=== PATIENT | female | born 2000 | race Caucasian/White ===

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

== ENCOUNTER 2020-05-17 13:56 | Emergency (ER) | payer OTHER, SELFPAY ==
[2020-05-17 14:06] VITALS: BP 134/66; PULSE 69; RESP 17; O2SAT 98; BMI 42.9
--- NOTE | 2020-05-17 14:32 | HMH.EDUTC ---
[facility] [place] Clinical Impression: Closed head injury Qualifiers: Encounter type: initial encounter Qualified Code(s): S09.90XA - Unspecified injury of head, initial encounter Headache Qualifiers: Headache type: unspecified Headache chronicity pattern: acute headache Intractability: not intractable Qualified Code(s): R51 - Headache Disposition: Home, Self-Care Condition on Discharge: Good Instructions: DI for Closed Head Injury Additional Instructions: Watch for signs of a concussion, follow up if you have any concerns. 1. Vomiting or nausea. 2. A worsening headache. 3. Drowsiness or decreased level of consciousness. 4. Confusion. 5. Trouble walking, talking, or seeing 6. Develope a stiff neck 7. Have a seizure (convulsion) or any abnormal movements or behaviors that worry you 8. Weakness or numbness involving any part of the body By this point, it should be ok to take either tylenol or ibuprofen for your headache. FOLLOW UP WITH [facility] - GO TO THE ER FOR ANY WORSENING SYMPTOMS OR CONCERNS Referrals: Arely Beasley PA [Primary Care Provider] - Forms: Work/School Release Time of Disposition: 14:48 Medical Decision Making - Medical Records Medical records reviewed: No: I reviewed the patient's medical records. - Ilan Inquiry Pt receiving controlled substance: No Vital Signs: 05/17/20 14:06 05/17/20 15:11 Temperature 98.1 F Temperature Source Oral Pulse Rate 69 Pulse Rate [Radial] 69 Respiratory Rate 17 17 Blood Pressure 134/66 Blood Pressure [Right Arm] 134/66 Blood Pressure Mean [Right Arm] 88 Blood Pressure Source Automatic Cuff Blood Pressure Source [Right Arm] Automatic Cuff Blood Pressure Position Sitting Blood Pressure Position [Right Arm] Sitting 02 Sat by Pulse Oximetry 98 Oxygen Delivery Method Room Air Room Air Orders (Tests/Meds): ED MEDICATIONS Discontinued Medications Generic Name Dose Route Start Last Admin Trade Name Freq PRN Reason Stop Dose Admin Ibuprofen 800 mg 05/17/20 14:31 05/17/20 14:40 Motrin 400mg Tablet PO 05/17/20 14:32 800 mg ONCE ONE [place] [facility] [place] - General Stated complaint: headache Time Seen by Provider: 05/17/20 14:32 Mode of Arrival: Ambulatory Source of Information: Patient Limitations: No Limitations Description of Symptoms (Recalled from Triage Doc. by RN): States she hit her head on the wall last night and has a headache. Denies LOC, no nausea or vomiting or excessive tiredness. HEENT Symptoms (Recalled from RN notes): Yes Resp Symptoms (Recalled from RN notes): No Skin Symptoms (Recalled from RN notes): No MS Symptoms (Recalled from RN notes): No Functional Status (Recalled from RN notes): wnl - History of Present Illness Provider Complaint: She states that she was horse playing with her friend and accidentily turned fast and bumped her forehead into her wall at home. This occured yesterday. Since then she has had a headache. She denies any loss of conciousness, vertigo, or other neurological symptoms - Related Data Previous Rx's Medication Instructions Recorded Azithromycin [Z-Chuy 250mg Tab*] 250 mg PO UD DOSE PK #6 tab 09/19/19 Brompheniramine/Pseudoephed/Dm 5 ml PO Q6HP PRN #240 syrup 09/19/19 [Bromfed Dm Cough Syrup] predniSONE [Prednisone 20mg 20 mg PO BID 4 Days #8 tab 09/19/19 Tab] Allergies Allergy/AdvReac Type Severity Reaction Status Date / Time No Known Allergies Allergy Verified 03/18/19 14:20 - Worker's Comp Is this a Worker's Comp case?: No [facility] History - Hepatitis A Screen Drug use history?: No High risk sexual behaviors?: No History of sexually transmitted infection?: No Currently employed?: No Childcare worker?: No Do you have indoor plumbing?: Yes Do you have electricity?: Yes Attestation statement:: This patient has been screened for Hepatitis A risk factors. I have reviewed the
[2020-05-17 15:11] VITALS: BP 134/66; PULSE 69; RESP 17; TEMP 36.7; O2SAT 98
== END 2020-05-17 15:13 | disposition home or self-care (01) ==
PROVIDERS: Emergency Provider Nurse Practitioner Family; PCP Physician Assistant
DX: S09.90XA Unspecified injury of head, initial encounter (principal); W22.01XA Walked into wall, initial encounter; Y92.019 Unspecified place in single-family (private) house as the place of occurrence of the external cause
CPT/HCPCS: 99201

== ENCOUNTER 2020-07-13 11:52 | Emergency (ER) | payer OTHER, SELFPAY ==
[2020-07-13 11:53] VITALS: BP 148/92; PULSE 77; RESP 18; TEMP 36.6; O2SAT 100; BMI 42.9
--- NOTE | 2020-07-13 13:02 | XR_ITS ---
PROCEDURE: XR FOOT LT MIN 3V CLINICAL INDICATION: PAIN COMPARISON: CR FTL3 FOOT-LT-3 VIEWS from 12/16/2012 CR FTL3 FOOT-LT-3 VIEWS from 01/26/2013 CR FTL3 FOOT-LT-3 VIEWS from 11/14/2013 CR FTR3 FOOT-RT-3 VIEWS from 11/02/2016 FINDINGS: No fracture or dislocation. No lytic or blastic change. There is normal mineralization. There is bony hypertrophy along the proximal aspect of the 5th metatarsal with an old healed fracture at the base of the 5th metatarsal. Other findings:No significant degenerative change. IMPRESSION: Old healed fracture at the base of the 5th metatarsal with bony hypertrophy Dictated by: Howard Cueva MD 07/13/2020 16:51 Hwoard Cueva MD in [place] 07/13/2020 16:51
--- NOTE | 2020-07-13 13:23 | HMH.EDUTC ---
[facility] [place] Clinical Impression: Foot pain, left Disposition: Home, Self-Care Condition on Discharge: Good Instructions: DI for Foot Pain Additional Instructions: Wear more supportive shoes Prescriptions: Meloxicam [Mobic 7.5mg Tab] 7.5 mg PO DAILY 30 Days #30 tab Transmission Status: Pending to [facility] Referrals: Arely Beasley PA [Primary Care Provider] - Time of Disposition: 14:31 Medical Decision Making - Ilan Inquiry Pt receiving controlled substance: No Vital Signs: 07/13/20 11:53 Temperature 97.8 F Temperature Source Oral Pulse Rate [Left Radial] 77 Respiratory Rate 18 Blood Pressure [Right Arm] 148/92 H Blood Pressure Mean [Right Arm] 110 Blood Pressure Source [Right Arm] Automatic Cuff Blood Pressure Position [Right Arm] Sitting 02 Sat by Pulse Oximetry 100 Oxygen Delivery Method Room Air Orders (Tests/Meds): ORDERS Category Date Time Status XR foot LT min 3V Stat Exams 07/13/20 13:02 Taken - Radiology Data #1 Image(s): Foot/Toes Image Reviewed: Yes I reviewed the patient's radiology image Preliminary Findings: No Fracture Seen [facility] [place] - General Stated complaint: L foot pain Time Seen by Provider: 07/13/20 13:23 Mode of Arrival: Ambulatory Source of Information: Patient Limitations: No Limitations Description of Symptoms (Recalled from Triage Doc. by RN): left foot pain for one month HEENT Symptoms (Recalled from RN notes): No Resp Symptoms (Recalled from RN notes): No Skin Symptoms (Recalled from RN notes): No MS Symptoms (Recalled from RN notes): Yes Functional Status (Recalled from RN notes): wnl - Related Data Previous Rx's Medication Instructions Recorded Azithromycin [Z-Chuy 250mg Tab*] 250 mg PO UD DOSE PK #6 tab 09/19/19 Brompheniramine/Pseudoephed/Dm 5 ml PO Q6HP PRN #240 syrup 09/19/19 [Bromfed Dm Cough Syrup] predniSONE [Prednisone 20mg 20 mg PO BID 4 Days #8 tab 09/19/19 Tab] Meloxicam [Mobic 7.5mg Tab] 7.5 mg PO DAILY 30 Days #30 tab 07/13/20 Allergies Allergy/AdvReac Type Severity Reaction Status Date / Time No Known Allergies Allergy Verified 03/18/19 14:20 - Worker's Comp Is this a Worker's Comp case?: No [facility] History - Hepatitis A Screen Drug use history?: No High risk sexual behaviors?: No History of sexually transmitted infection?: No Currently employed?: No Childcare worker?: No Do you have indoor plumbing?: No Do you have electricity?: Yes Attestation statement:: This patient has been screened for Hepatitis A risk factors. Medical History: Denies:: Cancer, Diabetes Mellitus Type 1, Diabetes Mellitus Type 2, Hypertension, MRSA Other Medical History: Reports: Other Comment: GASTROPEROSIS/ IBS, EHLERSDANLOS SYNDROME( CONNECTIVE TISSUE DISORDER) Laterality Cases: Left: Arthroscopy Knee, Bilateral: Myringotomy (Ear Tubes), Tonsillectomy Other Surgeries: Yes: Other Amputation: No Fractures: Yes (FOOT) Comment: BROKE LEFT FOOT AND RIGHT RING FEVER - Social History Smoking Status: Never smoker Alcohol Intake: never Substance Use Type: denies use Occupational Status: other Housing: house Household Members: family Family Hx:: No significant family history ROS Obtained: Yes All systems reviewed & no additional complaints - Musculoskeletal Musculoskeletal: Reports as per HPI Physical Exam - General General appearance: alert, in no apparent distress - Head Head exam: atraumatic, normocephalic - Eye Eye exam: Present: PERRL - Respiratory Respiratory exam: Present: normal lung sounds bilaterally - Cardiovascular Cardiovascular exam: Present: regular rate, normal rhythm - Expanded Lower Extremity Exam Left Foot/toe exam: Present: normal inspection. Absent: swelling, deformity - Neurological Exam Neurological exam: Present: alert, oriented X3 - Skin Skin exam: Present: warm, dry, intact
[2020-07-13 14:38] VITALS: BP 138/70; PULSE 87; RESP 16; TEMP 36.8; O2SAT 98
== END 2020-07-13 14:40 | disposition home or self-care (01) ==
PROVIDERS: Emergency Provider Physician Assistant; PCP Physician Assistant
DX: M79.672 Pain in left foot (principal); K31.84 Gastroparesis; K58.9 Irritable bowel syndrome, unspecified; Q79.60 Ehlers-Danlos syndrome, unspecified
CPT/HCPCS: 73630; 99201

== ENCOUNTER 2020-09-29 09:53 | Emergency (ER) | payer OTHER, SELFPAY ==
[2020-09-29 10:35] VITALS: BP 112/69; PULSE 69; RESP 16; TEMP 36.3; O2SAT 100; BMI 25.7
--- NOTE | 2020-09-29 11:14 | HMH.EDUTC ---
[facility] [place] Clinical Impression: Viral syndrome, Exposure to COVID-19 virus Disposition: Home, Self-Care Condition on Discharge: Good Instructions: Preventing the Spread of Coronavirus Discharge Instructions Additional Instructions: Drink plenty of fluids. Take tylenol for pain or fever. Follow up with your regular doctor. GO TO THE ER FOR ANY WORSENING SYMPTOMS Referrals: Arely Beasley PA [Primary Care Provider] - Time of Disposition: 11:14 Medical Decision Making - Medical Records Medical records reviewed: No: I reviewed the patient's medical records. - Ilan Inquiry Pt receiving controlled substance: No Vital Signs: 09/29/20 10:35 09/29/20 11:19 Temperature 97.3 F L 97.3 F L Temperature Source Oral Pulse Rate 69 Pulse Rate [Right Brachial] 69 Respiratory Rate 16 16 Blood Pressure 112/69 Blood Pressure [Right Arm] 112/69 Blood Pressure Mean [Right Arm] 83 Blood Pressure Source [Right Arm] Automatic Cuff Blood Pressure Position [Right Arm] Sitting 02 Sat by Pulse Oximetry 100 Oxygen Delivery Method Room Air Orders (Tests/Meds): ORDERS Category Date Time Status Covid-19 Nasal PCR ([facility]) Routine Lab 09/29/20 10:35 Received [facility] [place] HPI - General Stated complaint: covid exposure Time Seen by Provider: 09/29/20 10:40 Mode of Arrival: Ambulatory Source of Information: Patient Limitations: No Limitations Description of Symptoms (Recalled from Triage Doc. by RN): PATIENT REQUESTING COVID TEST D/T EXPOSURE; DENIES SYMPTOMS HEENT Symptoms (Recalled from RN notes): No Resp Symptoms (Recalled from RN notes): No Skin Symptoms (Recalled from RN notes): No MS Symptoms (Recalled from RN notes): No Functional Status (Recalled from RN notes): WNL - History of Present Illness Provider Complaint: She c/o chilling and head ache for the past 2 days. - Related Data Previous Rx's Medication Instructions Recorded Azithromycin [Z-Chuy 250mg Tab*] 250 mg PO UD DOSE PK #6 tab 09/19/19 Brompheniramine/Pseudoephed/Dm 5 ml PO Q6HP PRN #240 syrup 09/19/19 [Bromfed Dm Cough Syrup] predniSONE [Prednisone 20mg 20 mg PO BID 4 Days #8 tab 09/19/19 Tab] Meloxicam [Mobic 7.5mg Tab] 7.5 mg PO DAILY 30 Days #30 tab 07/13/20 Allergies Allergy/AdvReac Type Severity Reaction Status Date / Time No Known Allergies Allergy Verified 03/18/19 14:20 - Worker's Comp Is this a Worker's Comp case?: No [facility] History - Hepatitis A Screen Drug use history?: No High risk sexual behaviors?: No History of sexually transmitted infection?: No Currently employed?: No Childcare worker?: No Do you have indoor plumbing?: Yes Do you have electricity?: Yes Attestation statement:: This patient has been screened for Hepatitis A risk factors. I have reviewed the patient's past medical history: Yes Medical History: Denies:: Cancer, Diabetes Mellitus Type 1, Diabetes Mellitus Type 2, Hypertension, MRSA Other Medical History: Reports: Other Comment: GASTROPEROSIS/ IBS, EHLERSDANLOS SYNDROME( CONNECTIVE TISSUE DISORDER) Laterality Cases: Left: Arthroscopy Knee, Bilateral: Myringotomy (Ear Tubes), Tonsillectomy Other Surgeries: Yes: Other Amputation: No Fractures: Yes (FOOT) Comment: BROKE LEFT FOOT AND RIGHT RING FEVER - Social History Smoking Status: Never smoker Alcohol Intake: never Substance Use Type: denies use Occupational Status: other Housing: house Household Members: family Family Hx:: No significant family history ROS Obtained: Yes All systems reviewed & no additional complaints - Constitutional Constitutional: Reports system reviewed and no additional complaints, except as docu - Eyes Eyes: Reports system reviewed and no additional complaints, except as docu - ENT Ears, Nose, Mouth, and Throat: Reports system reviewed and no additional complaints, except as docu - Cardiovascular Cardiovascular: Reports system reviewed and no additional complaints, ex
[2020-09-29 11:19] VITALS: BP 112/69; PULSE 69; RESP 16; TEMP 36.3; O2SAT 100
== END 2020-09-29 11:22 | disposition home or self-care (01) ==
PROVIDERS: Emergency Provider Nurse Practitioner Family; PCP Physician Assistant
DX: Z20.822 Contact with and (suspected) exposure to COVID-19 (principal); B34.9 Viral infection, unspecified
CPT/HCPCS: 99202; G0463; U0003

== ENCOUNTER 2020-09-30 14:24 | Emergency (ER) | payer OTHER, SELFPAY ==
[2020-09-30 15:40] VITALS: BP 162/97; PULSE 71; RESP 14; TEMP 36.8; O2SAT 99; BMI 42.9
[2020-09-30 16:13] VITALS: BP 162/97; PULSE 71; RESP 14; TEMP 36.8; O2SAT 99
--- NOTE | 2020-09-30 16:19 | HMH.EDUTC ---
[facility] [place] Impression: Exposure to COVID-19 virus Disposition: Home, Self-Care Condition on Discharge: Good Instructions: DI for COVID-19 (Suspected or Confirmed ), Preventing the Spread of Coronavirus Discharge Instructions Additional Instructions: increase fluids self isolate until test results are known to be neg Referrals: Arely Beasley PA [Primary Care Provider] - Forms: Work/School Release Time of Disposition: 16:21 Medical Decision Making - Ilan Inquiry Pt receiving controlled substance: No Vital Signs: 09/30/20 15:40 09/30/20 16:13 Temperature 98.3 F 98.3 F Temperature Source Oral Pulse Rate 71 Pulse Rate [Right Brachial] 71 Respiratory Rate 14 14 Blood Pressure 162/97 H Blood Pressure [Right Arm] 162/97 H Blood Pressure Mean [Right Arm] 118 Blood Pressure Source [Right Arm] Automatic Cuff Blood Pressure Position [Right Arm] Sitting 02 Sat by Pulse Oximetry 99 Oxygen Delivery Method Room Air [facility] [place] - General Chief complaint: [facility] Stated complaint: covid exposure Time Seen by Provider: 09/30/20 16:19 Mode of Arrival: Ambulatory Source of Information: Patient Limitations: No Limitations Description of Symptoms (Recalled from Triage Doc. by RN): PATIENT REQUESTING COVID TEST D/T EXPOSURE HEENT Symptoms (Recalled from RN notes): No Resp Symptoms (Recalled from RN notes): No Skin Symptoms (Recalled from RN notes): No MS Symptoms (Recalled from RN notes): No Functional Status (Recalled from RN notes): WNL - History of Present Illness Provider Complaint: 20 yr old female presents for covid test. pt states she was exposed but no symptoms. - Related Data Previous Rx's Medication Instructions Recorded Azithromycin [Z-Chuy 250mg Tab*] 250 mg PO UD DOSE PK #6 tab 09/19/19 Brompheniramine/Pseudoephed/Dm 5 ml PO Q6HP PRN #240 syrup 09/19/19 [Bromfed Dm Cough Syrup] predniSONE [Prednisone 20mg 20 mg PO BID 4 Days #8 tab 09/19/19 Tab] Meloxicam [Mobic 7.5mg Tab] 7.5 mg PO DAILY 30 Days #30 tab 07/13/20 Allergies Allergy/AdvReac Type Severity Reaction Status Date / Time No Known Allergies Allergy Verified 06/21/19 14:20 - Worker's Comp Is this a Worker's Comp case?: No H History - Hepatitis A Screen Drug use history?: No High risk sexual behaviors?: No History of sexually transmitted infection?: No Currently employed?: No Childcare worker?: No Do you have indoor plumbing?: Yes Do you have electricity?: Yes Attestation statement:: This patient has been screened for Hepatitis A risk factors. I have reviewed the patient's past medical history: Yes Medical History: Denies:: Cancer, Diabetes Mellitus Type 1, Diabetes Mellitus Type 2, Hypertension, MRSA Other Medical History: Reports: Other Comment: GASTROPEROSIS/ IBS, EHLERSDANLOS SYNDROME( CONNECTIVE TISSUE DISORDER) Laterality Cases: Left: Arthroscopy Knee, Bilateral: Myringotomy (Ear Tubes), Tonsillectomy Other Surgeries: Yes: Other Amputation: No Fractures: Yes (FOOT) Comment: BROKE LEFT FOOT AND RIGHT RING FEVER - Social History Smoking Status: Never smoker Alcohol Intake: never Substance Use Type: denies use Occupational Status: other Housing: house Household Members: family Family Hx:: No significant family history ROS Obtained: Yes Systems reviewed as appropriate & no additional complaints - Constitutional Constitutional: Reports system reviewed and no additional complaints, except as docu, Denies fever(s) - Eyes Eyes: Reports system reviewed and no additional complaints, except as docu - ENT Ears, Nose, Mouth, and Throat: Reports system reviewed and no additional complaints, except as docu, Denies dizziness - Cardiovascular Cardiovascular: Reports system reviewed and no additional complaints, except as docu, Denies chest pain at rest - Respiratory Respiratory: Yes system reviewed and no additional complaints, except as docu, No lucy
== END 2020-09-30 16:27 | disposition home or self-care (01) ==
PROVIDERS: Emergency Provider Nurse Practitioner Family; PCP Physician Assistant
DX: Z20.822 Contact with and (suspected) exposure to COVID-19 (principal); K58.9 Irritable bowel syndrome, unspecified
CPT/HCPCS: 99202; G0463; U0003

== ENCOUNTER 2021-02-05 14:53 | Emergency (ER) | payer OTHER, SELFPAY ==
[2021-02-05 14:55] VITALS: BP 130/80; PULSE 76; RESP 21; TEMP 36.8; O2SAT 98; BMI 45.1
--- NOTE | 2021-02-05 15:38 | HMH.EDUTC ---
[facility] [place] Clinical Impression: Left otitis media Qualifiers: Otitis media type: suppurative Chronicity: acute Recurrence: non-recurrent Spontaneous tympanic membrane rupture: without spontaneous rupture Qualified Code(s): H66.002 - Acute suppurative otitis media without spontaneous rupture of ear drum, left ear Disposition: Home, Self-Care Condition on Discharge: Good Instructions: Middle Ear Infection Additional Instructions: Drink plenty of fluids. Take tylenol or ibuprofen for pain or fever. Take the medications as directed. Follow up with your regular doctor. GO TO THE ER FOR ANY WORSENING SYMPTOMS Prescriptions: Amoxicillin [Amoxicillin 500mg Tab] 500 mg PO TID 10 Days #30 tab Transmission Status: Received by [facility] predniSONE [Deltasone 10mg tablet] 10 mg PO BID 3 Days #6 tab Transmission Status: Received by [facility] Cetirizine HCl [Zyrtec] 10 mg PO DAILY 30 Days #30 cap Transmission Status: Received by [facility] Referrals: Arely Beasley PA [Primary Care Provider] - Time of Disposition: 15:42 Medical Decision Making - Medical Records Medical records reviewed: No: I reviewed the patient's medical records. - Ilan Inquiry Pt receiving controlled substance: No Vital Signs: 02/05/21 14:55 02/05/21 15:45 Temperature 98.3 F 98.3 F Temperature Source Oral Pulse Rate 76 Pulse Rate [Left Brachial] 76 Respiratory Rate 21 21 Blood Pressure 130/80 Blood Pressure [Left Arm] 130/80 Blood Pressure Mean [Left Arm] 96 Blood Pressure Source [Left Arm] Automatic Cuff Blood Pressure Position [Left Arm] Sitting 02 Sat by Pulse Oximetry 98 Oxygen Delivery Method Room Air [facility] [place] HPI - General Stated complaint: left earache Time Seen by Provider: 02/05/21 15:38 Mode of Arrival: Ambulatory Source of Information: Patient Limitations: No Limitations Description of Symptoms (Recalled from Triage Doc. by RN): PATIENT C/O LEFT EAR ACHE THAT STARTED LAST NIGHT HEENT Symptoms (Recalled from RN notes): Yes Resp Symptoms (Recalled from RN notes): No Skin Symptoms (Recalled from RN notes): No MS Symptoms (Recalled from RN notes): No Functional Status (Recalled from RN notes): WNL - History of Present Illness Provider Complaint: She states that since last night she has had left ear pain. She has a history of getting ear infections in that ear kind of frequently. - Related Data Previous Rx's Medication Instructions Recorded Amoxicillin [Amoxicillin 500mg Tab] 500 mg PO TID 10 Days #30 tab 02/05/21 Cetirizine HCl [Zyrtec] 10 mg PO DAILY 30 Days #30 cap 02/05/21 predniSONE [Deltasone 10mg tablet] 10 mg PO BID 3 Days #6 tab 02/05/21 Allergies Allergy/AdvReac Type Severity Reaction Status Date / Time No Known Allergies Allergy Verified 03/18/19 14:20 - Worker's Comp Is this a Worker's Comp case?: No [facility] History - Hepatitis A Screen Drug use history?: No High risk sexual behaviors?: No History of sexually transmitted infection?: No Currently employed?: No Childcare worker?: No Do you have indoor plumbing?: Yes Do you have electricity?: Yes Attestation statement:: This patient has been screened for Hepatitis A risk factors. I have reviewed the patient's past medical history: Yes Medical History: Denies:: Cancer, Diabetes Mellitus Type 1, Diabetes Mellitus Type 2, Hypertension, MRSA Other Medical History: Reports: Other Comment: GASTROPEROSIS/ IBS, EHLERSDANLOS SYNDROME( CONNECTIVE TISSUE DISORDER) Laterality Cases: Left: Arthroscopy Knee, Bilateral: Myringotomy (Ear Tubes), Tonsillectomy Other Surgeries: Yes: Other Amputation: No Fractures: Yes (FOOT) Comment: BROKE LEFT FOOT AND RIGHT RING FEVER - Social History Smoking Status: Never smoker Alcohol Intake: never Substance Use Type: denies use Occupational Status: other Housing: house Household Members: family Family Hx:: No significant family history ROS Obtained:
[2021-02-05 15:45] VITALS: BP 130/80; PULSE 76; RESP 21; TEMP 36.8; O2SAT 98
== END 2021-02-05 15:48 | disposition home or self-care (01) ==
PROVIDERS: Emergency Provider Nurse Practitioner Family; PCP Physician Assistant
DX: H66.002 Acute suppurative otitis media without spontaneous rupture of ear drum, left ear (principal)
CPT/HCPCS: 99202; G0463

== ENCOUNTER → 2021-04-12 10:29 | Outpatient (CLI) | payer OTHER, SELFPAY ==
[2021-04-12 10:32] LABS: Microscopic, Urine URINE MICROSCOPIC (MICROSCOPIC)
[2021-04-12 11:08] LABS: Basophils # 0.1 K/mm3 (0-0.2); Basophils % 0.7 % (0.1-2.0); Eosinophils % 0.3 % (0.1-12.0); Hematocrit 40.5 % (37.0-47.0); Hemoglobin 13.5 g/dL (12.2-16.2); Lymphocytes # 1.6 K/mm3 (0.7-4.5); Lymphocytes % 19.4 % (10-50); Mean Corpuscular HGB Conc 33.3 g/dL (31.8-35.4); Mean Corpuscular Hemoglobin 26.6 pg (27.0-31.2); Mean Corpuscular Volume 79.9 fl (81-99); Mean Platelet Volume 7.7 fl (7.4-10.4); Monocytes # 0.6 K/mm3 (0.1-1.0); Monocytes % 7.7 % (1.7-9.3); Neutrophils # 5.9 K/mm3 (1.8-7.8); Neutrophils % 71.9 % (37.0-80.0); Platelet Count 300 K/mm3 (142-424); Red Blood Count 5.07 M/mm3 (4.20-5.40); Red Cell Distribution Width 13.3 % (11.5-17.5); White Blood Count 8.3 K/mm3 (4.5-13.0)
[2021-04-12 11:16] LABS: Appearance,Urine CLOUDY (Clear); Bilirubin,Urine Negative (Negative); Blood, Urine Negative (Negative); Color,Urine YELLOW (Yellow); Glucose,Urine (UA) Negative (Negative); Ketones,Urine Negative (Negative); Leukocyte Esterase,Urine TRACE (Negative); Nitrate,Urine Negative (Negative); PH,Urine 6.5 (5.0-8.5); Protein,Urine Negative (Negative); Specific Gravity, Urine 1.025 (1.005-1.030); Urobilinogen,Urine 0.2 EU/dl (0.2)
[2021-04-12 11:41] LABS: Alanine Aminotransferase 28 U/L (12-78); Albumin Level 4.5 g/dl (3.5-5.0); Albumin/Globulin Ratio 1.6 (1.1-1.8); Alkaline Phosphatase 83 U/L (38-126); Amylase 60 U/L (30-110); Anion Gap 14.1 mEq/L (5-15); Aspartate Amino Transferase 26 U/L (14-36); Bilirubin,Total 0.8 mg/dl (0.2-1.3); Blood Urea Nitrogen 11 mg/dl (7-17); Calcium 9.5 mg/dl (8.4-10.2); Carbon Dioxide 28 mmol/L (22.0-30.0); Chloride 103 mmol/L (98-107); Chol/HDL Ratio 3.7 (1-3.5); Cholesterol 169 mg/dl (140-200); Estimated Glomerular Filt Rate 127 ml/min (>60); GFR (African American) 154 ML/MIN (>60); Globulin 2.8 g/dL (1.3-3.2); Glucose 100 mg/dl (74-100); HDL Cholesterol 46 mg/dl (40-60); Lipase 160 U/L (23-300); Potassium 4.1 mmoL/L (3.5-5.1); Sodium 141 mmol/L (136-145); Total Protein,Serum 7.3 g/dl (6.3-8.2); Triglycerides 90 mg/dl (30-150); VLDL Cholesterol 18 mg/dL (0-40)
[2021-04-12 11:53] LABS: Direct LDL Cholesterol 98.27 mg/dL (100-129)
[2021-04-12 12:09] LABS: Bacteria,Urine Trace /lpf; Squamous Epithelial Cell,Urine Occasional #/hpf (0-5)
[2021-04-12 12:10] LABS: Urine Pregnancy, HCG Qual. Negative (Negative)
[2021-04-12 12:12] LABS: Thyroid Stimulating Hormone 0.99 uIU/mL (0.465-4.68)
[2021-04-14 08:38] LABS: H. pylori Breath Test Negative (Negative)
== END ==
PROVIDERS: Visit Provider Physician Assistant
DX: R10.13 Epigastric pain (principal)
CPT/HCPCS: 36415; 80053; 80061; 81001; 81025; 82150; 83013; 83690; 84443; 85025

== ENCOUNTER → 2021-04-17 08:24 | Outpatient (CLI) | payer OTHER, SELFPAY ==
--- NOTE | 2021-04-17 08:24 | US_ITS ---
PROCEDURE: US ABDOMEN LIMITED CLINICAL INDICATION: post prandial vomiting COMPARISON: US [facility] US abdomen limited from 02/05/2018 FINDINGS: PANCREAS: Unremarkable. No obvious mass or abnormal fluid collection. No ductal dilatation LIVER: No focal liver lesions demonstrated. Homogeneous echogenicity. No intrahepatic biliary ductal dilatation evident. There is appropriate direction of blood flow within a non dilated portal vein RIGHT KIDNEY: The right kidney measures 9.9 x 4.5 x 6.1 cm and appears sonographically normal. GALLBLADDER: No gallstones, gallbladder wall thickening, pericholecystic fluid, or biliary dilatation. There is a trace amount of biliary sludge near the neck of the gallbladder. IMPRESSION: Trace biliary sludge otherwise unremarkable study Dictated by: Dr. Jethro Crockett MD 04/17/2021 11:23 Dr. Jethro Crockett MD in [place] 04/17/2021 11:23
== END ==
PROVIDERS: PCP Physician Assistant; Visit Provider Physician Assistant
DX: R10.13 Epigastric pain (principal)
CPT/HCPCS: 76705

== ENCOUNTER 2021-04-30 14:14 | Emergency (ER) | payer OTHER, SELFPAY ==
[2021-04-30 14:14] VITALS: BP 131/80; PULSE 84; RESP 21; TEMP 37; O2SAT 98; BMI 44.2
--- NOTE | 2021-04-30 15:27 | HMH.EDUTC ---
[facility] [place] Dis[place] Clinical Impression: Encounter for laboratory testing for COVID-19 virus Disposition: Home, Self-Care Condition on Discharge: Good Instructions: DI for COVID-19 (Suspected or Confirmed ), Coronavirus Disease 2019, Preventing the Spread of Coronavirus Discharge Instructions Additional Instructions: *Monitor Temp, Over the counter Motrin or Tylenol as directed/as needed Tylenol every 4 hours and Motrin every 6 hours (as long as your family doctor has told you that you can take it) for fever or pain. and straight to ER if unable to lower temp less than 101.0 after medication given *Warm salt water gargles may help to soothe the throat *Throat Lozenges *Warm fluids like tea with honey may help to soothe the throat *Sleep elevated *Humidifier/Vaporizer Follow up IMMEDIATELY for new or worsening symptoms or no Noticeable improvement over the next 48-72 hours. 911 for difficulty breathing or swallowing You were tested for today for COVID19 your test result should be back in the next 24-48 hours, you may call to the [facility] to see if your test results are back in the next 48 hours [phone] [facility] hours are 9am-9pm You was given a handout with instructions for Self Quarantine and Self isolation for while you wait on test results and what to do if they are positive If you are positive the Health Dept will be contacting you also Referrals: Arely Beasley PA [Primary Care Provider] - As needed Forms: Work/School Release Time of Disposition: 15:30 Medical Decision Making - Ilan Inquiry Pt receiving controlled substance: No Ilan was queried for this patient: No Vital Signs: 04/30/21 14:14 Temperature 98.6 F Temperature Source Oral Pulse Rate [Apical] 84 Respiratory Rate 21 Blood Pressure [Right Arm] 131/80 Blood Pressure Mean [Right Arm] 97 Blood Pressure Source [Right Arm] Automatic Cuff Blood Pressure Position [Right Arm] Supine 02 Sat by Pulse Oximetry 98 Oxygen Delivery Method Room Air Orders (Tests/Meds): ORDERS Category Date Time Status Covid-19 Nasal PCR ([facility]) Routine Lab 04/30/21 15:21 Ordered [facility] [place] HPI - General Stated complaint: covid exposure, symptoms Time Seen by Provider: 04/30/21 15:27 Mode of Arrival: Ambulatory Source of Information: Patient Limitations: No Limitations Description of Symptoms (Recalled from Triage Doc. by RN): covid test HEENT Symptoms (Recalled from RN notes): No Resp Symptoms (Recalled from RN notes): No Skin Symptoms (Recalled from RN notes): No MS Symptoms (Recalled from RN notes): No Functional Status (Recalled from RN notes): na - History of Present Illness Provider Complaint: Patient states that she was recently around her mother that tested positive for COVID yesterday State that she has been having body aches, chills, and nasal congestion States that she wanted to get tested for COVID due to exposure and having symptoms - Related Data Previous Rx's Medication Instructions Recorded cetirizine 10 mg tablet 10 mg PO DAILY PRN #30 tab 03/15/21 fluticasone propionate 50 1 spray INTRANASAL DAILY #16 g 03/15/21 mcg/actuation nasal spray,suspension omeprazole 40 mg capsule,delayed 40 mg PO DAILY #90 cap 04/11/21 release ondansetron 8 mg disintegrating 8 mg PO Q8H PRN #30 tab 04/11/21 tablet Allergies Allergy/AdvReac Type Severity Reaction Status Date / Time No Known Allergies Allergy Verified 04/11/21 13:57 - Worker's Comp Is this a Worker's Comp case?: No [facility] History - Hepatitis A Screen Drug use history?: No High risk sexual behaviors?: No History of sexually transmitted infection?: No Currently employed?: No Childcare worker?: No Do you have indoor plumbing?: Yes Do you have electricity?: Yes Attestation statement:: This patient has been screened for Hepatitis A risk factors. I have reviewed the patient's past medical history: Yes Medical History: Denies:: Cancer, Diabetes Mellitus Type 1
[2021-04-30 15:57] VITALS: BP 131/80; PULSE 84; RESP 21; TEMP 37; O2SAT 98
--- NOTE | 2021-05-01 09:32 | PC.NURSE ---
PT NOTIFIED OF POSITIVE COVID RESULT
== END 2021-04-30 15:58 | disposition home or self-care (01) ==
PROVIDERS: Emergency Provider Nurse Practitioner; PCP Physician Assistant
DX: U07.1 COVID-19 (principal)
CPT/HCPCS: 99202; G0463; U0003

== ENCOUNTER → 2021-06-17 06:57 | Outpatient (CLI) | payer OTHER, SELFPAY ==
--- NOTE | 2021-06-17 06:58 | NM_ITS ---
PROCEDURE: NM HEPATOBILIARY WO PHARM CLINICAL INDICATION: Biliary sludge in abdominal ultrasound COMPARISON: No exams were available for comparison TECHNIQUE: DOSE: 4.99 mCi technetium Choletec Ensure for fatty meal FINDINGS: Homogeneous activity is present within the hepatic parenchyma. Activity is present in the gallbladder by 5 minutes. Activity is present in the small bowel by minutes. The gallbladder ejection fraction is calculated to be 61 percent. No pain reported with fatty meal IMPRESSION: Unremarkable hepatobiliary scan with normal gallbladder ejection fraction Dictated by: Howard Cueva MD 06/17/2021 11:47 Howard Cueva MD in [place] 06/17/2021 11:47
--- NOTE | 2021-06-17 09:44 | HMH.ITSHM ---
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 []ODANSETRON OMEPRAZOLE FLUTICASONE CETIRIZINE
== END ==
PROVIDERS: PCP Physician Assistant; Visit Provider Physician Assistant
DX: K83.8 Other specified diseases of biliary tract (principal)
CPT/HCPCS: 78226; A9537

== ENCOUNTER → 2022-05-28 08:55 | Outpatient (CLI) | payer OTHER, SELFPAY ==
[2022-05-28 08:59] LABS: MANUAL DIFFERENTIAL MANUAL DIFFERENTIAL (MANUAL DIFF)
[2022-05-28 10:02] LABS: Basophils % 0.4 % (0.1-2.0); Eosinophils % 0.2 % (0.1-12.0); Hematocrit 41.5 % (37.0-47.0); Hemoglobin 12.9 g/dL (12.2-16.2); Lymphocytes # 1.3 K/mm3 (0.7-4.5); Lymphocytes % 20.9 % (10-50); Mean Corpuscular Hemoglobin 25.2 pg (27.0-31.2); Mean Corpuscular Volume 81.2 fl (81-99); Mean Platelet Volume 7.8 fl (7.4-10.4); Monocytes # 0.5 K/mm3 (0.1-1.0); Monocytes % 8.2 % (1.7-9.3); Neutrophils # 4.4 K/mm3 (1.8-7.8); Neutrophils % 70.3 % (37.0-80.0); Platelet Count 327 K/mm3 (142-424); Red Blood Count 5.12 M/mm3 (4.20-5.40); Red Cell Distribution Width 14.2 % (11.5-17.5); White Blood Count 6.2 K/mm3 (4.8-10.8)
[2022-05-28 12:51] LABS: Alanine Aminotransferase 50 U/L (12-78); Albumin Level 4.2 g/dl (3.5-5.0); Albumin/Globulin Ratio 1.4 (1.1-1.8); Alkaline Phosphatase 142 U/L (38-126); Anion Gap 14.1 mEq/L (5-15); Aspartate Amino Transferase 44 U/L (14-36); Bilirubin,Total 0.8 mg/dl (0.2-1.3); Blood Urea Nitrogen 8 mg/dl (7-17); Calcium 9.5 mg/dl (8.4-10.2); Carbon Dioxide 24 mmol/L (22.0-30.0); Chloride 105 mmol/L (98-107); Estimated Glomerular Filt Rate 126 ml/min (>60); GFR (African American) 153 ML/MIN (>60); Globulin 2.9 g/dL (1.3-3.2); Glucose 93 mg/dl (74-100); Potassium 4.1 mmoL/L (3.5-5.1); Sodium 139 mmol/L (136-145); Total Protein,Serum 7.1 g/dl (6.3-8.2)
[2022-05-28 19:29] LABS: Hypochromasia 2+; Lymphocytes % 22 % (10-50); Microcytosis 1+; Monocytes % 5 % (2-9); Neutrophils % 73 % (42-76); Platelet Estimate Normal; Total Cells Counted 100
[2022-05-29 14:36] LABS: H. pylori Breath Test Negative (Negative)
== END ==
PROVIDERS: PCP Physician Assistant; Visit Provider Nurse Practitioner Family
DX: R10.13 Epigastric pain (principal)
CPT/HCPCS: 36415; 80053; 83013; 85007; 85014; 85018; 85048; 85049

== ENCOUNTER → 2022-06-04 09:03 | Outpatient (CLI) | payer OTHER, SELFPAY ==
--- NOTE | 2022-06-04 09:08 | US_ITS ---
FINAL REPORT CLINICAL HISTORY: Upper right quadrant pain FINDINGS: Sonographic images of the right upper quadrant were obtained. The pancreas is partially obscured.The liver has an unremarkable appearance. There is a trace amount of sludge in the gallbladder. There is no evidence of biliary ductal dilatation.The common duct measures 2 mm. Limited images of the right kidney are unremarkable. IMPRESSION: Trace amount of sludge in the gallbladder. Reviewed, Interpreted and Dictated by Robert Altamirano III, MD Transcribed by Ramsey Virk Authenticated and [facility]
== END ==
PROVIDERS: PCP Physician Assistant; Visit Provider Physician Assistant
DX: R10.9 Unspecified abdominal pain (principal)
CPT/HCPCS: 76705

== ENCOUNTER 2022-07-01 08:05 | Emergency (ER) | payer OTHER, SELFPAY ==
[2022-07-01 08:17] VITALS: BP 150/99; PULSE 82; RESP 16; TEMP 36.8; O2SAT 97; BMI 44.6
--- NOTE | 2022-07-01 08:46 | EXP.UTC ---
Discharge Plan Disposition Patient Disposition: Home, Self-Care Condition: Good Prescriptions Prescriptions: New azithromycin [Zithromax] 250 mg tablet 250 mg PO UD DOSE PK Qty: 6 0RF Rx Instructions: Take two (2) tablets today, then one (1) tablet days #2 thru #5 methylprednisolone 4 mg Tablets,Dose Pack 4 mg PO DIRECTED Qty: 21 0RF No Action ondansetron HCl 4 mg tablet 4 mg PO QID PRN (Reason: for nausea) Qty: 90 1RF fluticasone propionate [Flonase Allergy Relief] 50 mcg/actuation spray,suspension 1 spray INTRANASAL DAILY Qty: 16 2RF Rx Instructions: administer into each nostril omeprazole 40 mg capsule,delayed release(DR/EC) 40 mg PO DAILY Rx Instructions: swallow whole; do not crush, chew, dissolve, cut, break Referrals Follow up/Referrals: Arely Beasley PA [Primary Care Provider] - See instructions Clinical Impressions Clinical Impression: Bronchitis, Sinusitis Stand Alone Forms Stand Alone Forms: Work/School Release Instructions Patient Instructions: Sinusitis, DI for Sinusitis Discharge ED Provider: Yusuf Fiore [facility] General Stated complaint: cough, KNAPP, congestion Mode of Arrival: Ambulatory Source of Information: Patient Limitations: No Limitations Time Seen by Provider: 07/01/22 08:24 Description of Symptoms (Recalled from Triage Doc. by RN): pt comes in with c/o congestion and headache. symptoms began 5 days ago. HEENT Symptoms (Recalled from RN notes): Yes Resp Symptoms (Recalled from RN notes): No Skin Symptoms (Recalled from RN notes): No MS Symptoms (Recalled from RN notes): No Functional Status (Recalled from RN notes): n/a History of Present Illness Provider Complaint: She states that for the past 5 days she has had sinus congestion, bilateral ear pain, cough and a sore throat. Related Data Home Medications Medication Instructions Recorded Confirmed omeprazole 40 mg capsule,delayed 40 mg PO DAILY GERD 07/01/22 07/01/22 release Previous Rx's Medication Instructions Recorded fluticasone propionate 50 1 spray intranasal DAILY #16 grams 03/15/21 mcg/actuation nasal spray,suspension (Flonase Allergy Relief) ondansetron HCl 4 mg tablet 4 mg PO QID PRN for nausea #90 tabs 05/27/22 azithromycin 250 mg tablet 250 mg PO UD DOSE PK #6 tabs 07/01/22 (Zithromax) methylprednisolone 4 mg tablets in 4 mg PO DIRECTED #21 tabs 07/01/22 a dose pack Allergies Allergy/AdvReac Type Severity Reaction Status Date / Time No Known Allergies Allergy Verified 07/01/22 08:22 Worker's Comp Is this a Worker's Comp case?: No PFSH PFSH Medical History Deedee-Danlos syndrome Epigastric pain Left knee pain Social History Smoking Status: Never smoker second hand exposure: No alcohol intake: never substance use type: denies use current occupational status: other Travel in the last 8 weeks: None household members: family housing: house ROS Obtained: Yes All systems reviewed & no additional complaints except as documented Constitutional Constitutional: Reports chills and Reports fever(s) Eyes Eyes: Denies eye discharge ENT Ears, Nose, Mouth, and Throat: Reports as per HPI Cardiovascular Cardiovascular: Denies chest pain Respiratory Respiratory: Denies chest congestion and Reports cough Gastrointestinal Gastrointestingal: Reports nausea; Denies abdominal pain, constipation, cramping, diarrhea or vomiting Musculoskeletal Musculoskeletal: Denies arthralgias Integumentary/Breasts Skin/Breast: Denies rash Neurologic Neurologic: Denies paresthesias Physical Exam General General appearance: alert and in no apparent distress Head Head exam: atraumatic, normocephalic and normal inspection Eye Eye exam: Present normal appearance, PERRL and EOMI ENT ENT exam: Present mucous membranes moist and
[2022-07-01 08:55] VITALS: BP 150/99; PULSE 82; RESP 16; TEMP 36.8
== END 2022-07-01 08:56 | disposition home or self-care (01) ==
PROVIDERS: Emergency Provider Nurse Practitioner Family; PCP Physician Assistant
DX: J40 Bronchitis, not specified as acute or chronic (principal); J32.9 Chronic sinusitis, unspecified
CPT/HCPCS: 99212; G0463

== ENCOUNTER → 2022-10-03 11:34 | Outpatient (CLI) | payer OTHER, SELFPAY | PROVIDERS: PCP Student in an Organized Health Care Education/Training Program; Visit Provider Student in an Organized Health Care Education/Training Program | DX: J02.9 Acute pharyngitis, unspecified (principal) | CPT/HCPCS: 87070; C9803; U0003; U0005 ==

== ENCOUNTER → 2023-08-26 13:17 | Outpatient (CLI) | payer OTHER, SELFPAY ==
--- NOTE | 2023-08-26 13:22 | XR_ITS ---
FINAL REPORT CLINICAL HISTORY: left rolon pain FINDINGS: Left knee Four views were obtained. There is no acute fracture or dislocation. The joint spaces appear normal. No soft tissue abnormality is identified. IMPRESSION: No acute process. Reviewed, Interpreted and Dictated by Dm Leiva MD Transcribed by Melodie Villeda Authenticated and [facility]
--- NOTE | 2023-08-26 13:22 | XR_ITS ---
FINAL REPORT CLINICAL HISTORY: left knee pain FINDINGS: Left tibia fibula Two views were obtained. There is no acute fracture or dislocation. The joint spaces appear normal. No soft tissue abnormality is identified. IMPRESSION: No acute process. Reviewed, Interpreted and Dictated by Dm Leiva MD Transcribed by Melodie Villeda Authenticated and [facility]
== END ==
PROVIDERS: PCP Physician Assistant; Visit Provider Physician Assistant
DX: M79.662 Pain in left lower leg (principal)
CPT/HCPCS: 73564; 73590

== ENCOUNTER 2023-09-09 09:43 | Emergency (ER) | payer OTHER, SELFPAY ==
[2023-09-09] VITALS (7 sets, daily range): BP systolic 111–132; BP diastolic 63–73; PULSE 59–81; RESP 16–19; TEMP 36.7–36.9; O2SAT 98–100; BMI 44.6
--- NOTE | 2023-09-09 09:55 | US_ITS ---
FINAL REPORT CLINICAL HISTORY: RUQ and epigastric pain COMPARISON: 04/17/2021 FINDINGS: Sonographic images of the right upper quadrant were obtained. The pancreas is partially obscured. There is mild fatty infiltration of the liver there is extensive sludge in the gallbladder. There is no evidence of gallbladder wall thickening. There is no evidence of biliary ductal dilatation.The common duct measures 3 mm. Limited images of the right kidney are unremarkable. IMPRESSION: Mild fatty liver. Extensive sludge in the gallbladder without wall thickening Reviewed, Interpreted and Dictated by Dm Leiva MD Transcribed by Nancy Tucker Authenticated and [facility]
--- NOTE | 2023-09-09 09:57 | HMH.EDGENADL ---
Discharge Plan Disposition Patient Disposition: Home, Self-Care Condition: Good Chief Complaint: Abdominal Pain Prescriptions Prescriptions: No Action pantoprazole [Protonix] 40 mg tablet,delayed release (DR/EC) 40 mg PO DAILY Qty: 90 3RF Referrals Follow up/Referrals: Arely Beasley PA [Primary Care Provider] - See instructions Clinical Impressions Clinical Impression: Abdominal pain, RUQ Instructions Patient Instructions: DI for Acute Abdominal Pain, Acute Abdominal Pain Discharge ED Provider: Sagrario Vasquez General Adult HPI General Chief complaint: Abdominal Pain Stated complaint: center of stomach pain Time Seen by Provider: 09/09/23 09:52 History of Present Illness HPI narrative: Patient has a PMHx significant for Deedee-Danlos syndrome, gastritis, gallstones with recurrent functional gallbladder issues who presents to the ED with complaints of abdominal pain. Patient notes that for the past few days, she has been having right upper quadrant and epigastric abdominal pain that has been intermittent. Patient notes that the pain feels as if someone is twisting her abdomen. Patient notes nausea vomiting, multiple episodes a day, all nonbloody. Patient has not been able to keep anything down. Patient notes that she undergoes annual HIDA scans, right upper quadrant ultrasounds, and H. pylori testing. Related Data Previous Rx's Medication Instructions Recorded pantoprazole 40 mg tablet,delayed 40 mg PO DAILY #90 tabs 08/26/23 release (Protonix) Allergies Allergy/AdvReac Type Severity Reaction Status Date / Time No Known Allergies Allergy Verified 09/09/23 12:07 [facility] Disclaimer: The information contained in this section may have been updated after the patient was seen, as this information can be updated by other users. Medical History Deedee-Danlos syndrome Epigastric pain Left knee pain Stomach cramps, generalized Social History Smoking Status: Never smoker second hand exposure: No alcohol intake: never substance use type: denies use current occupational status: other Travel in the last 8 weeks: None household members: family housing: house ROS Obtained: Yes All systems reviewed & no additional complaints except as documented Physical Exam General General appearance: alert and in no apparent distress Head Head exam: atraumatic, normocephalic and normal inspection Eye Eye exam: Present normal appearance, PERRL and EOMI; Absent scleral icterus or nystagmus ENT ENT exam: Present normal exam, mucous membranes moist and normal external ear exam Neck Neck exam: Present normal inspection, full ROM and trachea midline Chest Chest inspection: Present normal inspection and symmetric chest wall rise; Absent tenderness Respiratory Respiratory exam: Present normal lung sounds bilaterally; Absent respiratory distress, wheezes or accessory muscle use Cardiovascular Cardiovascular exam: Present regular rate, normal rhythm and normal heart sounds Abdominal Exam Abdominal exam: Present soft; Absent distention, tenderness, guarding, rebound, rigidity, trauma, ascites or pulsatile mass Extremities Exam Extremities exam: Present normal inspection and full ROM; Absent tenderness Back Exam Back exam: Present normal inspection and full ROM; Absent tenderness Neurological Exam Neurological exam: Present alert, oriented X3 and normal gait; Absent motor sensory deficit Psychiatric Psychiatric exam: Present normal affect and normal mood Skin Skin exam: Present warm, dry and normal color Medical Decision Making Medical Records Medical records reviewed: Yes I reviewed the patient's medical records. Ilan Inquiry Pt receiving controlled substance: No Vital Signs: 09/09/23 09:57 09/09/23 10:01 09/09/23 11:56 Temperature 98.4 F Temperature Source Oral P
[2023-09-09 09:59] LABS: Microscopic, Urine URINE MICROSCOPIC (MICROSCOPIC)
[2023-09-09 10:02] LABS: Appearance,Urine SL CLOUDY (Clear); Blood, Urine Negative (Negative); Color,Urine YELLOW (Yellow); Glucose,Urine (UA) Negative (Negative); Ketones,Urine 2+ (Negative); Leukocyte Esterase,Urine 1+ (Negative); Nitrate,Urine Negative (Negative); PH,Urine 6.5 (5.0-8.5); Protein,Urine Negative (Negative)
[2023-09-09 10:08] LABS: Bilirubin,Urine 1+ (Negative)
[2023-09-09 10:24] LABS: Bacteria,Urine 4+ /lpf
[2023-09-09 11:01] LABS: Basophils % 0.5 % (0.1-2.0); Eosinophils # 0.1 K/mm3 (0.0-0.4); Eosinophils % 0.9 % (0.1-12.0); Hematocrit 41.9 % (37.0-47.0); Hemoglobin 13.8 g/dL (12.2-16.2); Lymphocytes # 1.3 K/mm3 (0.7-4.5); Lymphocytes % 19.8 % (10-50); Mean Corpuscular HGB Conc 32.8 g/dL (31.8-35.4); Mean Corpuscular Hemoglobin 25.7 pg (27.0-31.2); Mean Corpuscular Volume 78.4 fl (81-99); Mean Platelet Volume 8.1 fl (7.4-10.4); Monocytes # 0.4 K/mm3 (0.1-1.0); Monocytes % 6.2 % (1.7-9.3); Neutrophils # 4.6 K/mm3 (1.8-7.8); Neutrophils % 72.6 % (37.0-80.0); Platelet Count 262 K/mm3 (142-424); Red Blood Count 5.34 M/mm3 (4.20-5.40); Red Cell Distribution Width 13.9 % (11.5-17.5); White Blood Count 6.3 K/mm3 (4.8-10.8)
[2023-09-09 11:03] LABS: Chloride 104 mmol/L (98-107); Sodium 136 mmol/L (136-145)
[2023-09-09 11:04] LABS: Potassium 3.7 mmoL/L (3.5-5.1)
[2023-09-09 11:06] LABS: Alanine Aminotransferase 143 U/L (12-78); Albumin Level 4.9 g/dl (3.5-5.0); Albumin/Globulin Ratio 1.3 (1.1-1.8); Alkaline Phosphatase 83 U/L (38-126); Anion Gap 12.7 mEq/L (5-15); Aspartate Amino Transferase 138 U/L (14-36); Bilirubin,Total 1.7 mg/dl (0.2-1.3); Blood Urea Nitrogen 7 mg/dl (7-17); Carbon Dioxide 23 mmol/L (22.0-30.0); Creatinine Clearance Estimated 126 mL/min (50-200); Estimated Glomerular Filt Rate 124 ml/min (>60); GFR (African American) 150 ML/MIN (>60); Globulin 3.7 g/dL (1.3-3.2); Glucose 90 mg/dl (74-100); Lipase 144 U/L (23-300); Total Protein,Serum 8.6 g/dl (6.3-8.2)
[2023-09-09 11:20] LABS: HCG Qualitative, Serum Positive (Negative)
--- NOTE | 2023-09-09 12:00 | PC.NURSE ---
MD on phone with workers compensation claims examiner surgeon
--- NOTE | 2023-09-15 09:47 | HMH.EDGENADL ---
Discharge Plan Disposition Patient Disposition: Home, Self-Care Condition: Good Prescriptions Prescriptions: No Action pantoprazole [Protonix] 40 mg tablet,delayed release (DR/EC) 40 mg PO DAILY Qty: 90 3RF promethazine 12.5 mg tablet 12.5 mg PO TID PRN (Reason: nausea and vomiting) Qty: 20 0RF pyridoxine (vitamin B6) 25 mg tablet 25 mg PO DAILY Qty: 30 0RF doxylamine succinate 25 mg tablet 12.5 mg PO HS PRN (Reason: morning sickness) Qty: 30 0RF Referrals Follow up/Referrals: Arely Beasley PA [Primary Care Provider] - See instructions Clinical Impressions Clinical Impression: Abdominal pain, RUQ Instructions Patient Instructions: Acute Abdominal Pain, DI for Acute Abdominal Pain Discharge ED Provider: Sagrario Vasquez General Adult [facility] General Chief complaint: Abdominal Pain Stated complaint: center of stomach pain Time Seen by Provider: 09/09/23 09:52 Mode of Arrival: Ambulatory Source of Information: Patient Limitations: No Limitations Description of Symptoms (Recalled from ER Triage Doc. by RN): pt reports she has been having center of abdominal pain for the past few days. pt reports nausea, vomitting. pt does have hx of gi problems and gets yearly scans for gallbladder and tested yearly for h pylori. Related Data Previous Rx's Medication Instructions Recorded pantoprazole 40 mg tablet,delayed 40 mg PO DAILY #90 tabs 08/26/23 release (Protonix) doxylamine succinate 25 mg tablet 12.5 mg PO HS PRN morning sickness 09/15/23 #30 tabs promethazine 12.5 mg tablet 12.5 mg PO TID PRN nausea and 09/15/23 vomiting #20 tabs pyridoxine (vitamin B6) 25 mg 25 mg PO DAILY #30 tabs 09/15/23 tablet Allergies Allergy/AdvReac Type Severity Reaction Status Date / Time No Known Allergies Allergy Verified 09/15/23 11:00 [facility] Disclaimer: The information contained in this section may have been updated after the patient was seen, as this information can be updated by other users. Medical History Deedee-Danlos syndrome Epigastric pain Left knee pain Stomach cramps, generalized Surgical History (Updated 09/15/23 @ 11:00 by Chantelle Goodwin) No significant past surgical history Family History (Updated 09/15/23 @ 11:00 by Chantelle Goodwin) Other No significant family history Social History Smoking Status: Never smoker second hand exposure: No alcohol intake: never substance use type: denies use current occupational status: other Travel in the last 8 weeks: None household members: family housing: house Physical Exam General General appearance: alert and in no apparent distress Medical Decision Making Vital Signs: 09/09/23 09:57 09/09/23 10:01 09/09/23 11:56 Temperature 98.4 F Temperature Source Oral Pulse Rate 81 63 Pulse Rate [Left Radial] 81 Respiratory Rate 16 Blood Pressure 111/66 125/72 Blood Pressure [Right Arm] 111/66 Blood Pressure Mean 83 Blood Pressure Mean [Right Arm] 81 02 Sat by Pulse Oximetry 100 100 100 Oxygen Delivery Method Room Air Room Air 09/09/23 12:00 09/09/23 12:31 09/09/23 13:00 Temperature Temperature Source Pulse Rate 63 63 59 L Pulse Rate [Left Radial] Respiratory Rate Blood Pressure 132/65 115/63 116/69 Blood Pressure [Right Arm] Blood Pressure Mean 81 Blood Pressure Mean [Right Arm] 02 Sat by Pulse Oximetry 100 100 100 Oxygen Delivery Method Room Air 09/09/23 13:36 Temperature 98.0 F Temperature Source Pulse Rate 63 Pulse Rate [Left Radial] Respiratory Rate 19 Blood Pressure 118/73 Blood Pressure [Right Arm] Blood Pressure Mean Blood Pressure Mean [Right Arm] 02 Sat by Pulse Oximetry Oxygen Delivery Method Room Air Lab Data Lab Results 09/09/23 09:52: Urine Color Yellow, Urine Appearance Sl cloudy, Urine pH 6.5, U
--- NOTE | 2023-09-15 09:55 | PC.NURSE ---
urine results show mixed urogenital cristiana, pt is with unknown of how far along. Pt contacted, fu with pcp to repeat urine culture. aware no further action is needed at this time
== END 2023-09-09 13:38 | disposition home or self-care (01) ==
PROVIDERS: Emergency Provider Emergency Medicine; PCP Physician Assistant
DX: R10.11 Right upper quadrant pain (principal); R10.13 Epigastric pain; R11.2 Nausea with vomiting, unspecified; Q79.60 Ehlers-Danlos syndrome, unspecified
CPT/HCPCS: 76705; 80053; 81001; 83690; 84702; 84703; 85025; 87086; 96361; 96374; 96375; 99285; J2405

== ENCOUNTER → 2023-09-10 10:46 | Outpatient (CLI) | payer OTHER, SELFPAY ==
[2023-09-10 11:19] LABS: Basophils % 0.6 % (0.1-2.0); Eosinophils # 0.1 K/mm3 (0.0-0.4); Eosinophils % 1.2 % (0.1-12.0); Hemoglobin 13.7 g/dL (12.2-16.2); Lymphocytes # 1.4 K/mm3 (0.7-4.5); Lymphocytes % 22.2 % (10-50); Mean Corpuscular HGB Conc 33.3 g/dL (31.8-35.4); Mean Corpuscular Hemoglobin 26.4 pg (27.0-31.2); Mean Corpuscular Volume 79.4 fl (81-99); Mean Platelet Volume 8.2 fl (7.4-10.4); Monocytes # 0.3 K/mm3 (0.1-1.0); Neutrophils # 4.6 K/mm3 (1.8-7.8); Neutrophils % 70.9 % (37.0-80.0); Platelet Count 248 K/mm3 (142-424); Red Blood Count 5.17 M/mm3 (4.20-5.40); White Blood Count 6.5 K/mm3 (4.8-10.8)
[2023-09-10 11:33] LABS: Chloride 103 mmol/L (98-107); Sodium 135 mmol/L (136-145)
[2023-09-10 11:35] LABS: Alanine Aminotransferase 119 U/L (12-78); Aspartate Amino Transferase 78 U/L (14-36); Bilirubin,Total 1.3 mg/dl (0.2-1.3); Blood Urea Nitrogen 6 mg/dl (7-17); Estimated Glomerular Filt Rate 153 ml/min (>60); GFR (African American) 185 ML/MIN (>60)
[2023-09-10 11:36] LABS: Albumin Level 4.6 g/dl (3.5-5.0); Albumin/Globulin Ratio 1.5 (1.1-1.8); Alkaline Phosphatase 101 U/L (38-126); Carbon Dioxide 25 mmol/L (22.0-30.0); Glucose 101 mg/dl (74-100); Lipase 196 U/L (23-300); Total Protein,Serum 7.6 g/dl (6.3-8.2)
== END ==
PROVIDERS: PCP Physician Assistant; Visit Provider Physician Assistant
DX: K80.20 Calculus of gallbladder without cholecystitis without obstruction (principal); K82.9 Disease of gallbladder, unspecified
CPT/HCPCS: 36415; 80053; 83690; 85025

== ENCOUNTER → 2023-09-15 12:20 | Outpatient (CLI) | payer OTHER, SELFPAY ==
[2023-09-15 13:03] LABS: Alanine Aminotransferase 56 U/L (12-78); Albumin Level 4.7 g/dl (3.5-5.0); Albumin/Globulin Ratio 1.5 (1.1-1.8); Alkaline Phosphatase 81 U/L (38-126); Anion Gap 12.6 mEq/L (5-15); Aspartate Amino Transferase 36 U/L (14-36); Bilirubin,Total 1.4 mg/dl (0.2-1.3); Blood Urea Nitrogen 5 mg/dl (7-17); Carbon Dioxide 23 mmol/L (22.0-30.0); Chloride 102 mmol/L (98-107); Estimated Glomerular Filt Rate 124 ml/min (>60); GFR (African American) 150 ML/MIN (>60); Globulin 3.2 g/dL (1.3-3.2); Glucose 92 mg/dl (74-100); Potassium 3.6 mmoL/L (3.5-5.1); Sodium 134 mmol/L (136-145); Total Protein,Serum 7.9 g/dl (6.3-8.2)
[2023-09-16 08:17] LABS: Progesterone 15.3 ng/mL (.)
== END ==
LOC: LAB 12:21
PROVIDERS: Student in an Organized Health Care Education/Training Program; PCP Physician Assistant; Visit Provider Obstetrics & Gynecology
DX: R10.11 Right upper quadrant pain (principal); R11.2 Nausea with vomiting, unspecified; Z32.00 Encounter for pregnancy test, result unknown
CPT/HCPCS: 36415; 80053; 84144; 84702; 87086

== ENCOUNTER 2023-09-21 05:42 | Emergency (ER) | payer OTHER, SELFPAY ==
[2023-09-21 05:44] VITALS: BP 122/82; PULSE 90; RESP 18; TEMP 36.8; O2SAT 98; BMI 42.9
[2023-09-21 06:02] LABS: Microscopic, Urine URINE MICROSCOPIC (MICROSCOPIC)
[2023-09-21 06:06] LABS: Urine Pregnancy, HCG Qual. Positive (Negative)
[2023-09-21 06:10] LABS: Appearance,Urine SL CLOUDY (Clear); Blood, Urine 3+ (Negative); Color,Urine AMBER (Yellow); Glucose,Urine (UA) Negative (Negative); Ketones,Urine TRACE (Negative); Leukocyte Esterase,Urine 1+ (Negative); Nitrate,Urine Negative (Negative); Protein,Urine 1+ (Negative); Specific Gravity, Urine 1.025 (1.005-1.030)
--- NOTE | 2023-09-21 06:17 | HMH.EDGENADL ---
Discharge Plan Disposition Patient Disposition: Home, Self-Care Prescriptions Prescriptions: New amoxicillin-pot clavulanate 875-125 mg tablet 1 tab PO BID 5 Days Qty: 10 0RF No Action pantoprazole [Protonix] 40 mg tablet,delayed release (DR/EC) 40 mg PO DAILY Qty: 90 3RF promethazine 12.5 mg tablet 12.5 mg PO TID PRN (Reason: nausea and vomiting) Qty: 20 0RF pyridoxine (vitamin B6) 25 mg tablet 25 mg PO DAILY Qty: 30 0RF doxylamine succinate 25 mg tablet 12.5 mg PO HS PRN (Reason: morning sickness) Qty: 30 0RF Referrals Follow up/Referrals: Arely Beasley PA [Primary Care Provider] - See instructions Activity Restrictions/Add. Instructions Additional Instructions/Restrictions: Please follow-up with your primary care provider. Please return to the emergency department if you develop any new or worsening symptoms or become concerned for your health. Clinical Impressions Clinical Impression: Asymptomatic bacteriuria during in first trimester Instructions Patient Instructions: DI for Low Back Pain Discharge ED Provider: Artie Cheung Adult HPI General Chief complaint: Back Pain/Injury Stated complaint: Left side lower back pain Time Seen by Provider: 09/21/23 05:56 Mode of Arrival: Ambulatory Source of Information: Patient Limitations: No Limitations Description of Symptoms (Recalled from ER Triage Doc. by RN): Patient states that she had Left lower back pain for about an hour, but it is gone now. Patient is also , last period mid June. History of Present Illness HPI narrative: 23-year-old female, history of Deedee-Danlos, with last menstrual period in June, presents with transient left back/flank pain. She reports pain lasted for approximately 1 hour. She reports that it is now gone. She has been having issues with nausea and vomiting during her and took Unisom B6 last night. It did help with her vomiting but she is worried that it could have caused her acute pain. She denies any changes in urination. Denies any history of kidney infections or kidney stones. Denies any other symptoms at this time. She has not had a formal ultrasound, has an appointment to establish care in early September. Related Data Previous Rx's Medication Instructions Recorded pantoprazole 40 mg tablet,delayed 40 mg PO DAILY #90 tabs 08/26/23 release (Protonix) doxylamine succinate 25 mg tablet 12.5 mg PO HS PRN morning sickness 09/15/23 #30 tabs promethazine 12.5 mg tablet 12.5 mg PO TID PRN nausea and 09/15/23 vomiting #20 tabs pyridoxine (vitamin B6) 25 mg 25 mg PO DAILY #30 tabs 09/15/23 tablet amoxicillin 875 mg-potassium 1 tab PO BID 5 days #10 tabs 09/21/23 clavulanate 125 mg tablet Allergies Allergy/AdvReac Type Severity Reaction Status Date / Time No Known Allergies Allergy Verified 09/15/23 11:00 [facility] Disclaimer: The information contained in this section may have been updated after the patient was seen, as this information can be updated by other users. Medical History (Updated 09/22/23 @ 02:46 by Artie Cheung MD) Deedee-Danlos syndrome Epigastric pain Left knee pain Stomach cramps, generalized Surgical History (Updated 09/15/23 @ 11:00 by Chantelle Goodwin) No significant past surgical history Family History (Updated 09/15/23 @ 11:00 by Chantelle Goodwin) Other No significant family history Social History Smoking Status: Never smoker second hand exposure: No alcohol intake: never substance use type: denies use current occupational status: other Travel in the last 8 weeks: None household members: family housing: house ROS Obtained: Yes All systems reviewed & no additional complaints except as documented Physical Exam General General appearance: alert and in no apparent distress Head Head exam: atraumatic and norm
[2023-09-21 06:45] LABS: Bilirubin,Urine Negative (Negative)
[2023-09-21 06:48] LABS: Bacteria,Urine 1+ /lpf
[2023-09-21 06:56] VITALS: BP 124/79; PULSE 87; RESP 18; TEMP 36.8; O2SAT 98
[2023-09-21 06:57] VITALS: BP 130/88; PULSE 88; RESP 18; TEMP 36.8; O2SAT 98
== END 2023-09-21 07:00 | disposition home or self-care (01) ==
PROVIDERS: Emergency Provider Emergency Medicine; PCP Physician Assistant
DX: O23.41 Unspecified infection of urinary tract in pregnancy, first trimester (principal); O99.891 Other specified diseases and conditions complicating pregnancy; Q79.60 Ehlers-Danlos syndrome, unspecified; Z3A.00 Weeks of gestation of pregnancy not specified
CPT/HCPCS: 81001; 81025; 87086; 99284

== ENCOUNTER 2023-09-22 00:31 | Emergency (ER) | payer OTHER, SELFPAY ==
[2023-09-22 00:53] VITALS: BP 128/78; PULSE 84; RESP 16; TEMP 37.1; O2SAT 100; BMI 42.9
--- NOTE | 2023-09-22 01:11 | HMH.EDGENADL ---
Discharge Plan Disposition Patient Disposition: Home, Self-Care Condition: Good Prescriptions Prescriptions: No Action pantoprazole [Protonix] 40 mg tablet,delayed release (DR/EC) 40 mg PO DAILY Qty: 90 3RF promethazine 12.5 mg tablet 12.5 mg PO TID PRN (Reason: nausea and vomiting) Qty: 20 0RF pyridoxine (vitamin B6) 25 mg tablet 25 mg PO DAILY Qty: 30 0RF doxylamine succinate 25 mg tablet 12.5 mg PO HS PRN (Reason: morning sickness) Qty: 30 0RF amoxicillin-pot clavulanate 875-125 mg tablet 1 tab PO BID 5 Days Qty: 10 0RF Referrals Follow up/Referrals: Arely Beasley PA [Primary Care Provider] - See instructions Activity Restrictions/Add. Instructions Additional Instructions/Restrictions: Please continue to take antibiotics as prescribed for bacteria in the urine. Call to follow-up with your [facility] [employer]. Please return to the emergency department if you develop any new or worsening symptoms or become concerned for your health. Clinical Impressions Clinical Impression: Left flank pain, Instructions Patient Instructions: DI for Acute Abdominal Pain Discharge ED Provider: Artie Cheung General Adult HPI General Chief complaint: Abdominal Pain Stated complaint: left back/side pain Time Seen by Provider: 09/22/23 00:33 Mode of Arrival: Ambulatory Source of Information: Patient Limitations: No Limitations Description of Symptoms (Recalled from ER Triage Doc. by RN): Pt c/o L flank pain that radiates around to her LLQ. pt states she is having urinary urgency and frequency. pt states she is , unsure how far along. pts LMP was mid June. pt states she was here yesterday morning but is now feeling worse. pt states she was given one dose of antibiotic at this time. History of Present Illness HPI narrative: 23-year-old female, history of Deedee-Danlos and glaucoma, with last menstrual period approximately mid June (patient does not know definitively), presents again with flank pain. She reports flank pain is left-sided, wrapping around to her left groin. She reports no history of kidney stones or kidney infection. She reports no burning with urination but does have urinary frequency. She has not taken any medications prior to arrival. She was seen less than 24 hours ago for similar symptoms. At that time she had 1 hour of nondescript self-limiting left flank pain. During ED stay at that time she was completely asymptomatic. Her urine at that time showed trace RBCs WBCs and bacteria, nitrates negative. She was treated with Augmentin for presumed asymptomatic bacteriuria. Related Data Previous Rx's Medication Instructions Recorded pantoprazole 40 mg tablet,delayed 40 mg PO DAILY #90 tabs 08/26/23 release (Protonix) doxylamine succinate 25 mg tablet 12.5 mg PO HS PRN morning sickness 09/15/23 #30 tabs promethazine 12.5 mg tablet 12.5 mg PO TID PRN nausea and 09/15/23 vomiting #20 tabs pyridoxine (vitamin B6) 25 mg 25 mg PO DAILY #30 tabs 09/15/23 tablet amoxicillin 875 mg-potassium 1 tab PO BID 5 days #10 tabs 09/21/23 clavulanate 125 mg tablet Allergies Allergy/AdvReac Type Severity Reaction Status Date / Time No Known Allergies Allergy Verified 09/15/23 11:00 [facility] Disclaimer: The information contained in this section may have been updated after the patient was seen, as this information can be updated by other users. Medical History (Updated 09/22/23 @ 02:46 by Artie Cheung MD) Deedee-Danlos syndrome Epigastric pain Left knee pain Stomach cramps, generalized Surgical History (Updated 09/15/23 @ 11:00 by Chantelle Goodwin) No significant past surgical history Family History (Updated 09/15/23 @ 11:00 by Chantelle Goodwin) Other No significant family history Social History Smoking Status: Never smoker second hand exposure: No alcohol intake: never subst
--- NOTE | 2023-09-22 01:40 | PC.NURSE ---
cultures collected per shoshana schwartz and sent to lab at this time.
[2023-09-22 01:45] LABS: Basophils % 0.3 % (0.1-2.0); Eosinophils # 0.1 K/mm3 (0.0-0.4); Eosinophils % 0.7 % (0.1-12.0); Hematocrit 39.8 % (37.0-47.0); Hemoglobin 13.4 g/dL (12.2-16.2); Lymphocytes # 0.8 K/mm3 (0.7-4.5); Lymphocytes % 8.7 % (10-50); Mean Corpuscular HGB Conc 33.8 g/dL (31.8-35.4); Mean Corpuscular Hemoglobin 26.5 pg (27.0-31.2); Mean Corpuscular Volume 78.3 fl (81-99); Mean Platelet Volume 7.9 fl (7.4-10.4); Monocytes # 0.6 K/mm3 (0.1-1.0); Monocytes % 5.9 % (1.7-9.3); Neutrophils # 8.1 K/mm3 (1.8-7.8); Neutrophils % 84.4 % (37.0-80.0); Platelet Count 271 K/mm3 (142-424); Red Blood Count 5.08 M/mm3 (4.20-5.40); Red Cell Distribution Width 14.3 % (11.5-17.5); White Blood Count 9.5 K/mm3 (4.8-10.8)
[2023-09-22 01:52] LABS: Alanine Aminotransferase 56 U/L (12-78); Alkaline Phosphatase 89 U/L (38-126); Aspartate Amino Transferase 48 U/L (14-36); Bilirubin,Total 1.2 mg/dl (0.2-1.3); Blood Urea Nitrogen 11 mg/dl (7-17); Carbon Dioxide 21 mmol/L (22.0-30.0); Chloride 100 mmol/L (98-107); Creatinine Clearance Estimated 94 mL/min (50-200); Estimated Glomerular Filt Rate 89 ml/min (>60); GFR (African American) 108 ML/MIN (>60)
[2023-09-22 01:53] LABS: Albumin Level 4.8 g/dl (3.5-5.0); Albumin/Globulin Ratio 1.3 (1.1-1.8); Anion Gap 13.6 mEq/L (5-15); Calcium 9.2 mg/dl (8.4-10.2); Globulin 3.6 g/dL (1.3-3.2); Glucose 135 mg/dl (74-100); Potassium 3.6 mmoL/L (3.5-5.1); Sodium 131 mmol/L (136-145); Total Protein,Serum 8.4 g/dl (6.3-8.2)
[2023-09-22 02:38] LABS: Coronavirus 19, PCR Not Detected (NotDetected); Influenza A, PCR Not Detected (NotDetected); Influenza B, PCR Not Detected (NotDetected)
[2023-09-22 03:00] VITALS: BP 121/74; PULSE 78; RESP 16; TEMP 37.1
== END 2023-09-22 03:03 | disposition home or self-care (01) ==
PROVIDERS: Emergency Provider Emergency Medicine; PCP Physician Assistant
DX: O99.891 Other specified diseases and conditions complicating pregnancy (principal); O26.891 Other specified pregnancy related conditions, first trimester; R10.32 Left lower quadrant pain; Q79.60 Ehlers-Danlos syndrome, unspecified; Z3A.10 10 weeks gestation of pregnancy
CPT/HCPCS: 80053; 84702; 85025; 87040; 87636; 96365; 99285; J0696

== ENCOUNTER 2023-10-05 09:57 | Outpatient (CLI) | payer OTHER, SELFPAY ==
[2023-10-05 10:51] LABS: Basophils % 0.2 % (0.1-2.0); Eosinophils % 0.7 % (0.1-12.0); Hematocrit 39.3 % (37.0-47.0); Hemoglobin 13.6 g/dL (12.2-16.2); Lymphocytes # 1.4 K/mm3 (0.7-4.5); Lymphocytes % 21.1 % (10-50); Mean Corpuscular HGB Conc 34.5 g/dL (31.8-35.4); Mean Corpuscular Hemoglobin 27.3 pg (27.0-31.2); Mean Corpuscular Volume 79.1 fl (81-99); Mean Platelet Volume 8.2 fl (7.4-10.4); Monocytes # 0.5 K/mm3 (0.1-1.0); Monocytes % 7.1 % (1.7-9.3); Neutrophils # 4.5 K/mm3 (1.8-7.8); Neutrophils % 70.9 % (37.0-80.0); Platelet Count 263 K/mm3 (142-424); Red Blood Count 4.97 M/mm3 (4.20-5.40); Red Cell Distribution Width 14.5 % (11.5-17.5); White Blood Count 6.4 K/mm3 (4.8-10.8)
[2023-10-06 08:17] LABS: Rubella Antibodies, IgG 3.23 index (Immune >0.99)
[2023-10-06 12:12] LABS: Rapid Plasma Reagin Ab Titer Non Reactive titer (NonRea<1:1)
[2023-10-14 08:50] LABS: HIV Screen 4th Generation wRfx Non Reactive; Hepatitis B Surface Antigen Negative; Hepatitis C Antibody Non Reactive
== END 2023-10-05 23:59 ==
LOC: LAB 09:58
PROVIDERS: PCP Physician Assistant; Visit Provider Obstetrics & Gynecology
DX: Z34.91 Encounter for supervision of normal pregnancy, unspecified, first trimester (principal); Z3A.10 10 weeks gestation of pregnancy
CPT/HCPCS: 36415; 85025; 86593; 86703; 86762; 86850; 87086; 87340; 87380; G0432

== ENCOUNTER 2023-12-07 13:08 | Outpatient (CLI) | payer OTHER, SELFPAY ==
--- NOTE | 2023-12-07 13:08 | US_ITS ---
PROCEDURE: US OB >= 14 WEEKS FETUS CLINICAL INDICATION: 20 week anatomy scan COMPARISON: No exams were available for comparison FINDINGS: Transabdominal sonographic images of the pelvis were obtained. From her established due date she is 19 weeks 6 days. Single viable intrauterine gestation. Breech position. Placenta: Anterior with a posterior wrapplacenta grade 1. There is an average amount of fluid. The cervix appears satisfactory. Closed and measuring 3.0 cm in length. Complete survey performed and was unremarkable on the submitted images as in PACS. No discrete anomalies identified on survey imaging by technologist. Active fetus. Three-vessel cord with satisfactory umbilical cord insertion. 4- chamber heart noted. Situs, aortic arch, LVOT, RVOT, three-vessel view appear normal. Survey of brain & ventricles Unremarkable. Cerebellum, thalamus, choroid plexus, cisterna magna appear normal. Face and neck survey unremarkable. Profile, nasion, lips and nose appeared normal. Diaphragm and chest views unremarkable. Abdomen: Both kidneys noted and unremarkable. Stomach and bladder noted and satisfactory. Spine: Survey of the spine satisfactory with no anomalies identified nor imaged. Cervical, thoracic, lower spine appear normal. Both arms and legs noted. Amniotic Fluid: Adequate. Measurements: Average ultrasound age 19weeks 4days. Estimated due date by ultrasound age 0804/28/2024. Estimated weight 292g BPD = 19weeks 5days HC = 19weeks 1day AC = 19weeks 6days FL = 19weeks 1day Growth Percentile= 23 Heart Rate = 158bpm Cerebellum = 19weeks 5days Humerus = 19weeks 3days HC/AC is 1.12 FL/BPD is 0.65 FL/AC is 0.2 IMPRESSION: 1. Viable fetus in the breech presentation with an anterior/posterior wrap placenta grade 1. 2. The fluid is within normal limits. 3. Anatomical scan appears normal. Difficult scan secondary to maternal obesity. 4. biometry is consistent with a dates. Dictated by: Paramjit Trujillo MD 12/07/2023 15:23 Paramjit Trujillo MD in [facility] 12/07/2023 15:23
== END 2023-12-07 23:59 ==
LOC: RAD 13:08
PROVIDERS: PCP Physician Assistant; Visit Provider Obstetrics & Gynecology
DX: O26.892 Other specified pregnancy related conditions, second trimester (principal); Z3A.19 19 weeks gestation of pregnancy
CPT/HCPCS: 76805

== ENCOUNTER 2024-01-08 11:09 | Outpatient (CLI) | payer OTHER, SELFPAY ==
--- NOTE | 2024-01-08 11:12 | XR_ITS ---
FINAL REPORT CLINICAL HISTORY: L ankle pain COMPARISON: None FINDINGS: LEFT ANKLE: Three views of the left ankle were obtained. There is no acute fracture or dislocation. The joint spaces and mortise are intact. There is no soft tissue abnormality. IMPRESSION: No acute bony abnormality. Reviewed, Interpreted and Dictated by Robert Altamirano III, MD Transcribed by Ruma Martínez Authenticated and [facility]
== END 2024-01-08 23:59 ==
LOC: RAD 11:09
PROVIDERS: PCP Physician Assistant; Visit Provider Student in an Organized Health Care Education/Training Program
DX: M25.572 Pain in left ankle and joints of left foot (principal)
CPT/HCPCS: 73610

== ENCOUNTER 2024-02-02 13:00 | Outpatient (CLI) | payer OTHER, SELFPAY ==
--- NOTE | 2024-02-02 13:00 | US_ITS ---
PROCEDURE: US OB FOLLOW UP CLINICAL INDICATION: Maternal Obesity-Growth Scan follow up COMPARISON: US US OB >= 14 WEEKS FETUS from 12/07/2023 FINDINGS: Transabdominal sonographic images of the pelvis were obtained. The following parameters are obtained: From her established due date she is 28weeks 3days Viable fetus in the breech presentation with a right laterally wrapped placenta grade 1. The cervix measures 3.9 cm heart rate: 150bpm bpm. Estimated weight 1195 grams, 2 lb 10 oz. BPD: 29weeks 5days, 78 percentile HC: 28weeks 5days, 24 percentile AC: 28weeks 3days, 40 percentile FL: 27weeks 5days, 16 percentile HC/AC: 1.09 FL/BPD: 0.7 FL/AC: 0.22 Growth percentile: 30 Amniotic fluid index: 17.7cm, MVP 5.4 cm. No obvious anomalies evident. profile seen, stomach, kidneys, three-vessel cord, four chamber heart appear normal. IMPRESSION: 1. Viable fetus in the breech presentation with a right laterally wrapped placenta grade 1. 2. The fluid is within normal limits with an amniotic fluid index of 17.7 cm, MVP 5.4 cm. 3. There has been good interval growth with the fetus currently 30th percentile. 4. Limited anatomical scan appears normal. Dictated by: Paramjit Trujillo MD 02/02/2024 14:39 Paramjit Trujillo MD in [place] 02/02/2024 14:39
== END 2024-02-02 23:59 | disposition home or self-care (01) ==
LOC: RAD 13:00
PROVIDERS: PCP Physician Assistant; Visit Provider Obstetrics & Gynecology
DX: O26.893 Other specified pregnancy related conditions, third trimester (principal); Z3A.28 28 weeks gestation of pregnancy
CPT/HCPCS: 76816

== ENCOUNTER 2024-02-04 07:30 | Outpatient (CLI) | payer OTHER, SELFPAY ==
[2024-02-04 07:51] LABS: Basophils # 0.1 K/mm3 (0-0.2); Basophils % 0.5 % (0.1-2.0); Eosinophils # 0.1 K/mm3 (0.0-0.4); Eosinophils % 1.1 % (0.1-12.0); Hematocrit 36.5 % (37.0-47.0); Hemoglobin 12.4 g/dL (12.2-16.2); Lymphocytes # 1.3 K/mm3 (0.7-4.5); Lymphocytes % 13.5 % (10-50); Mean Corpuscular HGB Conc 33.9 g/dL (31.8-35.4); Mean Corpuscular Hemoglobin 28.3 pg (27.0-31.2); Mean Corpuscular Volume 83.7 fl (81-99); Mean Platelet Volume 8.7 fl (7.4-10.4); Monocytes # 0.4 K/mm3 (0.1-1.0); Monocytes % 4.1 % (1.7-9.3); Neutrophils # 7.9 K/mm3 (1.8-7.8); Neutrophils % 80.8 % (37.0-80.0); Platelet Count 229 K/mm3 (142-424); Red Blood Count 4.37 M/mm3 (4.20-5.40); Red Cell Distribution Width 14.6 % (11.5-17.5); White Blood Count 9.8 K/mm3 (4.8-10.8)
[2024-02-04 08:56] LABS: Glucose,Fasting 124 mg/dl (74-100)
[2024-02-04 09:30] VITALS: BP 135/78; PULSE 81; RESP 18; TEMP 36.7; O2SAT 99
[2024-02-04] MEDS: RHO(D) IMMUNE GLOBULIN 1,500 UNIT SYRINGE 1500 UNIT IM (09:30)
[2024-02-04 09:54] LABS: Glucose 1 Hour 123 mg/dL (74-100)
== END 2024-02-04 09:45 | disposition home or self-care (01) ==
LOC: LAB 07:30 → INF 09:13
PROVIDERS: PCP Physician Assistant; Visit Provider Obstetrics & Gynecology
DX: O26.893 Other specified pregnancy related conditions, third trimester (principal); Z3A.28 28 weeks gestation of pregnancy; Z67.91 Unspecified blood type, Rh negative; Z29.13 Encounter for prophylactic Rho(D) immune globulin
CPT/HCPCS: 36415; 82951; 85025; 96372; J2790

== ENCOUNTER 2024-02-09 10:24 | Outpatient (CLI) | payer OTHER, SELFPAY ==
[2024-02-10 18:09] LABS: H. pylori Breath Test Negative (Negative)
== END 2024-02-09 23:59 | disposition home or self-care (01) ==
LOC: LAB 10:24
PROVIDERS: PCP Physician Assistant; Visit Provider Physician Assistant
DX: R10.13 Epigastric pain (principal)
CPT/HCPCS: 83013

== ENCOUNTER 2024-02-14 08:18 | Emergency (ER) | payer OTHER, SELFPAY ==
[2024-02-14 09:15] VITALS: BP 140/75; PULSE 106; RESP 20; TEMP 36.9; O2SAT 97; BMI 45.7
--- NOTE | 2024-02-14 09:20 | ED_ITS ---
Discharge Plan Disposition Patient Disposition: Home, Self-Care Condition: Good Prescriptions Prescriptions: New azithromycin [Zithromax] 250 mg tablet 250 mg PO UD DOSE PK Qty: 6 0RF Rx Instructions: Take two (2) tablets today, then one (1) tablet days #2 thru #5 No Action Classic 28 mg iron- 800 mcg tablet 1 tab PO DAILY Qty: 30 11RF Referrals Follow up/Referrals: Arely Beasley PA [Primary Care Provider] - See instructions Activity Restrictions/Add. Instructions Additional Instructions/Restrictions: Drink plenty of fluids. Take tylenol for pain or fever. Take the medications as directed. Follow up with your regular doctor. GO TO THE ER FOR ANY WORSENING SYMPTOMS Clinical Impressions Clinical Impression: Bronchitis, Instructions Patient Instructions: DI for Acute Bronchitis, Azithromycin Discharge ED Provider: Yusuf Fiore [facility] General Stated complaint: cough Time Seen by Provider: 02/14/24 09:19 History of Present Illness Provider Complaint: She states that for the past 4 days she has had worsening cough and congestion. She is 26 weeks . Related Data Previous Rx's Medication Instructions Recorded vits no.126-ferrous fum 1 tab PO DAILY #30 tabs 10/05/23 28 mg iron-folic acid 800 mcg tablet (Classic ) azithromycin 250 mg tablet 250 mg PO UD DOSE PK #6 tabs 02/14/24 (Zithromax) Allergies Allergy/AdvReac Type Severity Reaction Status Date / Time No Known Allergies Allergy Verified 02/02/24 16:00 [facility] Disclaimer: The information contained in this section may have been updated after the patient was seen, as this information can be updated by other users. 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, autosomal recessive Rh negative state in antepartum period Maternal obesity affecting , antepartum Stomach cramps, generalized Deedee-Danlos syndrome Left knee pain Epigastric pain Surgical History H/O left knee surgery History of tonsillectomy History of placement of ear tubes No significant past surgical history Family History Other Cancer Coronary artery disease Diabetes Hyperlipidemia Hypertension Social History Smoking Status: Never smoker second hand exposure: No alcohol intake: never substance use type: denies use current occupational status: other Travel in the last 8 weeks: None household members: family housing: house ROS Obtained: Yes All systems reviewed & no additional complaints except as documented Constitutional Constitutional: Reports poor appetite Eyes Eyes: Reports system reviewed and no additional complaints, except as documented ENT Ears, Nose, Mouth, and Throat: Reports as per HPI Cardiovascular Cardiovascular: Reports system reviewed and no additional complaints, except as documented and Denies chest pain Respiratory Respiratory: Denies shortness of breath, Reports chest congestion, Reports cough, Denies stridor and Denies wheezing Gastrointestinal Gastrointestingal: Reports system reviewed and no additional complaints, except as documented; Denies abdominal pain, diarrhea or vomiting Musculoskeletal Musculoskeletal: Reports system reviewed and no additional complaints, except as documented and Denies arthralgias Integumentary/Breasts Skin/Breast: Reports system reviewed and no additional complaints, except as documented and Denies rash Neurologic Neurologic: Denies paresthesias Allergic/Immunologic Allergic/Immunologic: Denies wheezing Physical Exam General General appearance: alert and in no apparent distress Eye Eye exam: Present normal appearance, PERRL and EOMI ENT ENT exam: Present mucous membranes moist and normal external ear exam Expanded ENT Exam External ear exam: Present normal external inspection TM/Canal exam: Bilateral TM: erythema and bulging Nose exam: Absent sinus tenderness Nasal speculum exam: Bilateral: normal Mouth exam: Present normal external inspection; Absent drooling Teeth exam: Present normal inspection Throat exam: Present tonsillar erythema and tonsillomegaly Neck Neck exam: Present normal inspection, full ROM and trachea midline; Absent tenderness, lymphadenopathy or thyromegaly Chest Chest inspection: Present normal inspection and symmetric chest wall rise; Absent tenderness or rash Respiratory Respiratory exam: Present normal lung sounds bilaterally; Absent respiratory distress, wheezes, stridor or accessory muscle use Cardiovascular Cardiovascular exam: Present regular rate, normal rhythm and normal heart sounds Abdominal Exam Abdominal exam: Present soft; Absent distention, tenderness, guarding, rebound or rigidity Extremities Exam Extremities exam: Present normal inspection, full ROM and normal capillary refill; Absent tenderness or calf tenderness Back Exam Back exam: Present normal inspection and full ROM; Absent tenderness Neurological Exam Neurological exam: Present alert and oriented X3 Psychiatric Psychiatric exam: Present normal affect and normal mood Skin Skin exam: Present warm, dry, intact and normal color Lymphatic Lymphatic Findings: no adenopathy Medical Decision Making Medical Records Medical records reviewed: No I reviewed the patient's medical records. Ilan Inquiry Pt receiving controlled substance: No
[2024-02-14 09:59] VITALS: BP 140/75; PULSE 106; RESP 20; TEMP 36.9; O2SAT 97
== END 2024-02-14 10:04 | disposition home or self-care (01) ==
PROVIDERS: Emergency Provider Nurse Practitioner Family; PCP Physician Assistant
DX: O26.892 Other specified pregnancy related conditions, second trimester (principal); J20.9 Acute bronchitis, unspecified; R05.9 Cough, unspecified; Z3A.26 26 weeks gestation of pregnancy
CPT/HCPCS: 99212; 99214; G0463

== ENCOUNTER 2024-02-29 08:00 | Outpatient (RCR) | payer OTHER, SELFPAY ==
--- NOTE | 2023-12-16 10:11 | HMH.PTOPEV ---
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 PMH:currently , EDS (danile-danlos syn) New diagnosis of cancer in past 12 No months? Chief Complaint Pain,Weakness Symptom Type Ache,Dull Symptoms Relieved By Rest/Positioning,Heat Symptoms Aggravated By Standing,Physical Activity, Walking Prior Functional Limitations Lifting,Housework,Walking Current Functional Limitations Lifting,Housework,Walking Symptom Description Constant but Variable Level of pain today (0-10) 6 Pain scale - at its best (0-10) 6 Pain scale - at its worst (0-10) 7 Cervical Eval MMT Bilateral Deltoid (C5) 4- Good- Biceps Brachii Strength Grade 5 Normal Wrist Extension Strength Grade 5 Normal Triceps Brachii Strength Grade 5 Normal Wrist Flexion Strength Grade 5 Normal Extensor Pollicis Longus Strength Grade 5 Normal Finger Abduction Strength Grade 5 Normal Lumbopelvic Eval Manual Muscle Test Knee Extension Strength Grade 5 Normal Knee Flexion Strength Grade 4 Good Hip Flexion Strength Grade 4 Good Hip Abduction Strength Grade 4- Good- Hip Adduction Strength Grade 5 Normal Hip Extension Strength Grade 4 Good Hip/Knee Eval Palpation Tenderness bilateral Knee Palpation Finding Tenderness Knee Palpation Overall Comment 2/4 medial and jt line ROM Knee Flexion Active Range of Motion ( 5-125 degrees) Lower Extremity Functional Index Activities Today, do you or would you have any difficulty at all with: a.Any of your usual work, housework or Moderate difficulty school activities b. Your usual hobbies, recreational or Moderate difficulty sporting activities c. Getting into or out of the bath A little bit of difficulty d. Walking between rooms No difficulty e. Putting on your shoes or socks No difficulty f. Squatting Moderate difficulty g. Lifting an object, like a bag of No difficulty groceries from the floor h. Performing light activities around A little bit of difficulty your home i. Performing heavy activities around A little bit of difficulty your home j. Getting into or out of a car A little bit of difficulty k. Walking 2 blocks A little bit of difficulty l. Walking a mile A little bit of difficulty m. Going up or down 10 stairs (about 1 A little bit of difficulty flight of stairs) n. Standing for 1 hour A little bit of difficulty o. Sitting for 1 hour No difficulty p. Running on even ground A little bit of difficulty q. Running on uneven ground Moderate difficulty r. Making sharp turns while running fast A little bit of difficulty s. Hopping A little bit of difficulty t. Rolling over in bed No difficulty LEFI Score Lower Extremity Functional Index Score 61 Outpatient Therapy Assessment Impairments Problems/Impairmments Palpation Tenderness,Impaired Endurance,Impaired Walking, Impaired Standing,Impaired Lifting,Impaired Household Care,Subjective C/O Pain Prognosis Rehab Potential Good Clinical Impression Consistent with Diagnosis Yes Short Term Goals Number of Weeks 4 Decreased Palpation Tenderness Yes: 1-2/4 B/L KNEES Increase Strength Yes: 4/5 B/L UE AND LE'S Increase Ability to Walk Yes: 1HR Increase Ability to Stand Yes: 1HR Restore Ability to Lift Objects to Waist Yes: 15# Level Improve Ability For Household Care Yes: 1HR Decrease Subjective C/O Pain Yes: 3/10 W/ABOVE ACTIVITIES Patient to be Ind w/ HEP Yes Detention Goals Number of Weeks 10-12 Decreased Palpation Tenderness Yes: 0-1/4 B/L KNEES Increase Ability to Walk Yes: 2HRS Increase Ability to Stand Yes: 2HRS Improve Ability For Household Care Yes: 2HRS Decrease Subjective C/O Pain Yes: 0-2/10 W/ABOVE ACTIVITIES Patient to be Ind w/ Advanced HEP Yes Outpatient Therapy Plan of Care Treatment Plan May Include Therapeutic Exercise Including Home Yes Exercise Program Manual Therapy Techniques Yes Neuromuscular Re-education Yes Therapeutic Activities to Return to Yes Previous Functional/Work Level Gait Training Yes ADL/Self Care Education Yes Dry Needling Yes Thermal Modalities Yes Electrical Stimulation Yes Ultrasound/Phonophoresis Yes Iontophoresis Yes Orthotics/Bracing/Splinting Yes Eval/Re-Eval Yes Frequency Times per week 2-3 Duration Number of Weeks 10-12 Addendums This patient is a candidate for social No or vocational rehab? Patient/Guardian verbally acknowledges Yes understanding of treatment program and consents to further treatment? Patient/Guardian verbally acknowledges Yes understanding of diagnosis, prognosis and goals for treatment? Eval Complexity PT Charges 01996 - Moderate Complexity Shoulder/Elbow Eval Shoulder Objective Measurements Elbow Objective Measurements PHYSICIAN CERTIFICATION: I certify the specified therapy services for Mary Menjivar are required, authorized, and reviewed every 30 days.
--- NOTE | 2024-01-18 10:33 | HMH.RHREAS ---
Rehab Reassessment Rehab OP Re-assessment Start: 12/16/23 09:21 Freq: Status: Active Protocol: Document 01/18/24 10:24 DONAVON (Rec: 01/18/24 10:32 DONAVON [id number]) E-signed By Wilber Talley, PT Lower Extremity Functional Index Activities Today, do you or would you have any difficulty at all with: a.Any of your usual work, housework or A little bit of difficulty school activities b. Your usual hobbies, recreational or A little bit of difficulty sporting activities c. Getting into or out of the bath No difficulty d. Walking between rooms No difficulty e. Putting on your shoes or socks No difficulty f. Squatting Moderate difficulty g. Lifting an object, like a bag of No difficulty groceries from the floor h. Performing light activities around A little bit of difficulty your home i. Performing heavy activities around A little bit of difficulty your home j. Getting into or out of a car No difficulty k. Walking 2 blocks A little bit of difficulty l. Walking a mile Moderate difficulty m. Going up or down 10 stairs (about 1 No difficulty flight of stairs) n. Standing for 1 hour No difficulty o. Sitting for 1 hour No difficulty p. Running on even ground No difficulty q. Running on uneven ground Moderate difficulty r. Making sharp turns while running fast No difficulty s. Hopping Moderate difficulty t. Rolling over in bed No difficulty LEFI Score Lower Extremity Functional Index Score 67 Rehab Re-assessment Subjective Subjective Pt reports 0-1/10 pain in UE and LE's this am on VAS, and reports increased strength/ endurance w/household activities since I eval. 'I can be up for at least an hour now.' Objective Objective Notes MMT: B/L HIP FLX 4+/5, B/L HIP ABD 4-4+/5, B/L HIP ADD 5/5, B/L HIP EXT 4-4+/5, B/L KNEE FLX 4-4+/5, B/L KNEE EXT 5/5 B/L SH FLX,ABD 4-4+/5 TTP: MEDIAL JT LINE B/L KNEE(S ) 0-1/4 GAIT: WFL ON LEVEL TERRAIN Assessment Progress Assessment Progressing as Expected Assessment Notes IMPROVED STRENGTH, TTP, AND LEF Patient goals met STG'S 03/05 LTG'S 11/03 Goals Not Met STG'S 11/05, LTG'S 01/01 Plan Plan Pt to continue w/skilled P.T. to make further improvements in ROM, strength, and endurance to allow for optimal function Frequency of Therapy 2-3x/wk Duration of therapy 4-6wks Time and Billing Re-Eval Time 12 Re-Eval Billing Units 1 PHYSICIAN CERTIFICATION: I certify the specified therapy services for Mary Menjivar are required, authorized, and reviewed every 30 days.
--- NOTE | 2024-02-29 09:13 | HMH.RHREAS ---
Rehab Reassessment Rehab OP Re-assessment Start: 12/16/23 09:21 Freq: Status: Active Protocol: Document 02/29/24 09:08 [email or web address] (Rec: 02/29/24 09:13 PHORNE Laptop) E-signed By Cricket Suazo, PT Lower Extremity Functional Index Activities Today, do you or would you have any difficulty at all with: a.Any of your usual work, housework or No difficulty school activities b. Your usual hobbies, recreational or No difficulty sporting activities c. Getting into or out of the bath No difficulty d. Walking between rooms No difficulty e. Putting on your shoes or socks No difficulty f. Squatting No difficulty g. Lifting an object, like a bag of No difficulty groceries from the floor h. Performing light activities around No difficulty your home i. Performing heavy activities around A little bit of difficulty your home j. Getting into or out of a car No difficulty k. Walking 2 blocks No difficulty l. Walking a mile No difficulty m. Going up or down 10 stairs (about 1 No difficulty flight of stairs) n. Standing for 1 hour No difficulty o. Sitting for 1 hour No difficulty p. Running on even ground No difficulty q. Running on uneven ground No difficulty r. Making sharp turns while running fast No difficulty s. Hopping No difficulty t. Rolling over in bed No difficulty LEFI Score Lower Extremity Functional Index Score 79 Rehab Re-assessment Subjective Subjective Pt reports, I feel really good with my legs, I don't really have any problems with them at all. The only problems I have now are holding my arms up and my strength in my shoulders. It's hard to hold my 6 month old baby for very long. Objective Objective Notes MMT: B/L HIP FLX 5/5, B/L HIP ABD 5/5, B/L HIP ADD 5/5, B/L HIP EXT 4+/5, B/L KNEE FLX 5/5 , B/L KNEE EXT 5/5 B/L SH FLX,ABD 4+/5 TTP: MEDIAL JT LINE B/L KNEE(S ) 0/4 GAIT: WFL ON LEVEL TERRAIN Assessment Progress Assessment Progressing as Expected Assessment Notes Strength continues to improve, B UE strength and endurance could improve to increase ability to perform ADLs. Patient goals met STG'S 05/05 LTG'S 3/6 Goals Not Met STG'S , LTG'S 12/01 Plan Plan Pt to continue w/skilled P.T. to make further improvements in ROM, strength, and endurance to allow for optimal function Frequency of Therapy 2-3x/wk Duration of therapy 4-6wks Time and Billing Re-Eval Time 10 Re-Eval Billing Units 1 PHYSICIAN CERTIFICATION: I certify the specified therapy services for Mary Menjivar are required, authorized, and reviewed every 30 days.
== END 2024-02-29 09:30 | disposition home or self-care (01) ==
LOC: PT 08:00
PROVIDERS: Visit Provider Nurse Practitioner Family
DX: Q79.69 Other Ehlers-Danlos syndromes (principal); R29.898 Other symptoms and signs involving the musculoskeletal system
CPT/HCPCS: 97010; 97014; 97110; 97163; 97164; 97530; G0283

== ENCOUNTER 2024-03-04 08:10 | Outpatient (CLI) | payer OTHER, SELFPAY ==
[2024-03-04] MEDS: ALBUTEROL 0.083% 2.5 MG/3 ML NEB IH (08:29)
--- NOTE | 2024-03-04 08:31 | PC.NURSE ---
Pre and Post PFT completed without incident. Albuterol 0.083% given via HHN, per protocol, Pt tolerated tx well.
== END 2024-03-04 23:59 | disposition home or self-care (01) ==
LOC: RT 08:11
PROVIDERS: PCP Physician Assistant; Visit Provider Nurse Practitioner Family
DX: R05.3 Chronic cough (principal)
CPT/HCPCS: 94060

== ENCOUNTER 2024-03-17 13:45 | Outpatient (CLI) | payer OTHER, SELFPAY ==
--- NOTE | 2024-03-17 13:46 | US_ITS ---
PROCEDURE: US OB BIOPHYSICAL PROFILE CLINICAL INDICATION: Maternal Obesity,US OB BPP/Growth with SIMEON COMPARISON: US US OB >= 14 WEEKS FETUS from 12/07/2023 US US OB FOLLOW UP from 02/02/2024 FINDINGS: Transabdominal sonographic images of the uterus were obtained. From her established due date she is 34weeks 5days. The following parameters are obtained: Viable Fetus in the cephalic presentation with a right lateral placenta grade 2. Average ultrasound age is 35weeks 4days Estimated weight 2,652g, 5 lb 14 oz. Cervix measures 3.85 cm in length. Measurements: heart Rate = 150bpm BPD = 35weeks 4days, 74 percentile HC = 36weeks 2days, 51 percentile AC = 35weeks 4days, 77 percentile FL = 34weeks 5days, 40 percentile HC/AC is 1.02 FL/BPD is 0.77 FL/AC is 0.21 Average growth: 64 percentile Amniotic fluid index: 13.15cm, MVP 5.25 cm. Qualitative AFV:2 Breathing movements: 2 Gross Body Movements: 2 Tone: 2 Biophysical profile score: 8 No obvious anomalies evident.Kidneys, profile, bladder, stomach, four-chamber heart, three-vessel cord appear normal. IMPRESSION: 1. Viable fetus in the cephalic presentation with a right lateral placenta grade 2. 2. The fluid is within normal limits with an amniotic fluid index of 13.15 cm, MVP 5.25 cm. 3. Biophysical profile is 8/8 with good breathing movement and movement seen. 4. There has been good interval growth since her last ultrasound 02/02/2024. 5. The limited anatomical scan appears normal. Dictated by: Paramjit Trujillo MD 03/18/2024 11:13 Paramjit Trujillo MD in [place] 03/18/2024 11:13
== END 2024-03-17 23:59 | disposition home or self-care (01) ==
LOC: RAD 13:46
PROVIDERS: PCP Obstetrics & Gynecology; Visit Provider Obstetrics & Gynecology
DX: O99.213 Obesity complicating pregnancy, third trimester (principal); O26.893 Other specified pregnancy related conditions, third trimester; Z67.91 Unspecified blood type, Rh negative; Z3A.34 34 weeks gestation of pregnancy; Z13.71 Encounter for nonprocreative screening for genetic disease carrier status; E66.9 Obesity, unspecified
CPT/HCPCS: 76816; 76819

== ENCOUNTER 2024-03-29 16:38 | Outpatient (CLI) | payer OTHER, SELFPAY | END 2024-03-29 23:59 | disposition home or self-care (01) | LOC: LAB.DROPOF 16:38 | PROVIDERS: PCP Obstetrics & Gynecology; Visit Provider Obstetrics & Gynecology | DX: O99.213 Obesity complicating pregnancy, third trimester (principal); O26.893 Other specified pregnancy related conditions, third trimester; Z3A.35 35 weeks gestation of pregnancy; K76.0 Fatty (change of) liver, not elsewhere classified; Z13.71 Encounter for nonprocreative screening for genetic disease carrier status; E66.9 Obesity, unspecified | CPT/HCPCS: 86403 ==

== ENCOUNTER 2024-04-28 12:54 | Inpatient (IN) | payer OTHER, SELFPAY ==
[2024-04-28 13:05] VITALS: BMI 47.5
--- NOTE | 2024-04-28 13:25 | HMH.PHAINT1 ---
Pharmacy Intervention Comments: MEDICATION RECONCILIATION COMPLETED ON PATIENT USING EXTERNAL FILL HISTORY FROM PHARMACY. -RASHAWN BORJA, AZARD
[2024-04-28 14:22] LABS: Microscopic, Urine URINE MICROSCOPIC (MICROSCOPIC)
[2024-04-28 14:27] LABS: Basophils # 0.1 K/mm3 (0-0.2); Basophils % 0.4 % (0.1-2.0); Eosinophils # 0.1 K/mm3 (0.0-0.4); Eosinophils % 0.7 % (0.1-12.0); Hematocrit 35.9 % (37.0-47.0); Hemoglobin 12.2 g/dL (12.2-16.2); Lymphocytes # 1.5 K/mm3 (0.7-4.5); Lymphocytes % 13.9 % (10-50); Mean Corpuscular Hemoglobin 28.4 pg (27.0-31.2); Mean Corpuscular Volume 83.6 fl (81-99); Mean Platelet Volume 9.4 fl (7.4-10.4); Monocytes # 0.6 K/mm3 (0.1-1.0); Monocytes % 5.3 % (1.7-9.3); Neutrophils # 8.8 K/mm3 (1.8-7.8); Neutrophils % 79.5 % (37.0-80.0); Platelet Count 234 K/mm3 (142-424); Red Blood Count 4.29 M/mm3 (4.20-5.40); Red Cell Distribution Width 14.5 % (11.5-17.5)
[2024-04-28] MEDS: DEXTROSE 5%-LACTATED RINGERS 1,000 ML 125 ML IV ×2 (15:07→23:24)
[2024-04-28 15:12] LABS: Appearance,Urine Cloudy (Clear); Color,Urine Yellow (Yellow)
[2024-04-28 15:14] LABS: Specific Gravity, Urine > 1.030 (1.005-1.030)
[2024-04-28 15:15] LABS: Bilirubin,Urine Negative (Negative); Blood, Urine Negative (Negative); Glucose,Urine (UA) Negative (Negative); Ketones,Urine Trace (Negative); Leukocyte Esterase,Urine Negative (Negative); Nitrate,Urine Negative (Negative); Protein,Urine Negative (Negative); RBC,Urine Occasional #/hpf (0-3)
[2024-04-28 15:16] LABS: Calcium Oxalate Crystals,Urine 1+ /lpf; Squamous Epithelial Cell,Urine Occasional #/hpf (0-5); WBC,Urine Occasional #/hpf (0-3)
[2024-04-28 15:17] LABS: Amorphous Sediment,Urine 4+ /lpf
[2024-04-28] MEDS: miSOPROStol 100MCG TABLET 50 MCG PO ×2 (15:55→21:59)
[2024-04-28 16:50] VITALS: BP 137/76; PULSE 94; RESP 20; TEMP 36.8; O2SAT 98; BMI 47.5
[2024-04-28 21:28] LABS: Benzodiazepines Screen,Urine Negative ng/ml (<200); Cannabinoid Screen,Urine Negative ng/ml (<50)
[2024-04-28 21:29] LABS: Cocaine Screen,Urine Negative ng/ml (<300)
[2024-04-28 21:30] LABS: Methadone Screen,Urine Negative ng/ml (<300); Opiate Screen,Urine Negative ng/ml (<300)
[2024-04-28 21:31] LABS: Phencyclidine Screen,Urine Negative ng/ml (<25)
[2024-04-28 21:55] LABS: Amphetamine/Metha Screen,Urine Negative ng/ml (<1000); Barbiturates Screen,Urine Negative ng/ml (<200)
[2024-04-29] MEDS: miSOPROStol 100MCG TABLET 50 MCG PO (04:02)
--- NOTE | 2024-04-29 07:54 | EXP.OB.APHP ---
OB - H&P: HPI Antepartum History of Present Illness Chief complaint: scheduled induction of labor History of present illness: Ms Mary Menjivar is a 23 yo at 40w2d who presents for scheduled induction of labor full term. She has had good care. Baby is active. No contractions, leakage of fluid or vaginal bleeding. complicated by maternal obesity. GBS negative. History of Present Criteria for establishing EDC:: LMP confirmed by 1st trimester US (10 week ultrasound) care: good care Ultrasounds: normal mid trimester US Obstetrical complications: none Labs Blood type: A (-) negative Rubella: immune RPR/VDRL: nonreactive GBS status: negative HBsAG: negative PFSH PFSH Disclaimer: The information contained in this section may have been updated after the patient was seen, as this information can be updated by other users. Medical History (Updated 04/29/24 @ 08:03 by Toya Tom DO) Post term over 40 weeks Bronchitis Screening for genetic disease carrier status Rh negative state in antepartum period Maternal obesity affecting , antepartum Stomach cramps, generalized Deedee-Danlos syndrome Left knee pain Epigastric pain Surgical History H/O left knee surgery History of tonsillectomy History of placement of ear tubes Family History Other Cancer Coronary artery disease Diabetes Hyperlipidemia Hypertension Social History (Updated 04/28/24 @ 15:52 by Lupe Arreola RN) Smoking Status: Never smoker second hand exposure: No alcohol intake: never substance use type: denies use current occupational status: unemployed Travel in the last 8 weeks: None household members: family housing: house Review of Systems Review of Systems Review of systems:: pertinent systems reviewed and negative unless documented below Meds Home Medications and Allergies Home Medications ?Medication ?Instructions ?Recorded ?Confirmed ?Type vits no.126-ferrous fum 1 tab PO DAILY #30 tabs 10/05/23 04/28/24 Rx 28 mg iron-folic acid 800 mcg tablet (Classic ) famotidine 40 mg tablet 40 mg PO DAILY #30 tabs 02/16/24 04/28/24 Rx pantoprazole 40 mg tablet,delayed 40 mg PO DAILY #30 tabs 02/16/24 04/28/24 Rx release latanoprost 0.005 % eye drops 1 drp Eye-Both DAILY 03/29/24 04/28/24 History New Prescriptions to Start Prescriptions: Allergies Allergy/AdvReac Type Severity Reaction Status Date / Time No Known Allergies Allergy Verified 04/26/24 08:55 OB - H&P: Exam Physical Exam Vital signs: Temp Pulse Resp BP Pulse Ox O2 Del Method 98.3 F 94 H 20 137/76 98 Room Air 04/28/24 16:50 04/28/24 16:50 04/28/24 16:50 04/28/24 16:50 04/28/24 16:50 04/28/24 16:50 Constitutional no acute distress, obese and cooperative Routine HEENT Exam Head: Present normocephalic and atraumatic Eye: Absent conjunctivae pink ENT: Present mucous membranes moist Routine Neck Exam Present full ROM Routine Respiratory Exam Present CTA bilaterally and normal respiratory effort Routine Cardiovascular Exam Present RRR Routine Abdominal Exam Present soft (Gravid); Absent tenderness Routine Rectal Exam Patient deferred: visual exam Routine Exam External: Present normal urethra appearance; Absent erythema, tenderness, lesions or lacerations Routine Extremities Exam Present full ROM; Absent edema or calf tenderness Routine Neurological Exam Present alert, moving all extremities and normal speech Routine Psychiatric Exam Present normal affect and cooperative Detailed Labor and Delivery Exam Dilation (cm): 1 Effacement (%): 60 Cervix position: anterior station: -1 Consistency: medium Membranes: intact Baseline heart rate: 140 monitor accelerations: Present monitor decelerations: None skilled nursing variability: Moderate (11-25) Contraction frequency (min): 5 Contraction intensity: Mild OB - Results Labs Labs: Short CBC 04/28/24 Range/Units 14:10 WBC 11.0 H (4.8-10.8) K/mm3 Hgb 12.2 (12.2-16.2) g/dL Hct 35.9 L (37.0-47.0) % Plt Count 234 (142-424) K/mm3 Urine 04/28/24 Range/Units 13:20 Urine Color Yellow (Yellow) Urine Appearance Cloudy (Clear) Urine pH 6.0 (5.0-8.5) Ur Specific [place] > 1.030 H (1.005-1.030) Urine Protein Negative (Negative) Urine Glucose (UA) Negative (Negative) OB - A/P Antepartum (1) Post term over 40 weeks: Status: Acute (2) Maternal obesity affecting , antepartum: Status: Acute (3) Deedee-Danlos syndrome: Status: Chronic (4) Rh negative state in antepartum period: Status: Acute Additional Plan Additional Information:: Admit to [facility] for scheduled induction of labor Induction with Cytotec followed by Pitocin GBS negative Close monitoring
[2024-04-29] MEDS: LACTATED RINGERS 1000ML 1,000 ML 250 ML IV (08:06)
[2024-04-29] MEDS: DEXTROSE 5%-LACTATED RINGERS 1,000 ML 125 ML IV ×2 (08:06→15:28)
[2024-04-29] MEDS: OXYTOCIN/RINGERS LACTATE 30 UNITS/500 ML BAG IV (08:08)
--- NOTE | 2024-04-29 15:45 | EXP.LABOR.NO ---
Labor Note Subjective: Date: 04/29/24 Time: 15:45 regular contraction Objective: NST:: Reactive Contractions:: every 2-3 minutes Cervical Dilation:: 1-2 Effacement:: 70% Station: -1 Membranes: artificially ruptured Fetus: Monitoring?: Yes monitoring type:: External Problems: (1) Post term over 40 weeks: Category: Medical Code(s): O48.0 - Post-term (2) Maternal obesity affecting , antepartum: Qualifiers: Obesity type affecting : unspecified obesity Qualified Code(s): O99.210 - Obesity complicating , unspecified trimester Category: Medical Code(s): O99.210 - Obesity complicating , unspecified trimester (3) Rh negative state in antepartum period: Category: Medical Code(s): O26.899 - Other specified related conditions, unspecified trimester; Z67.91 - Unspecified blood type, Rh negative (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
--- NOTE | 2024-04-29 17:17 | P.PN_ITS ---
Labor Note Subjective: Date: 04/29/24 Time: 17:17 regular contraction Objective: NST:: Reactive Contractions:: every 2-3 minutes Cervical Dilation:: 1-2 Effacement:: 70% Station: -1 Membranes: artificially ruptured Fetus: Monitoring?: Yes Assessment: Labor progressing?: No Problems: (1) Post term over 40 weeks: Category: Medical Code(s): O48.0 - Post-term (2) Maternal obesity affecting , antepartum: Qualifiers: Obesity type affecting : unspecified obesity Qualified Code(s): O99.210 - Obesity complicating , unspecified trimester Category: Medical Code(s): O99.210 - Obesity complicating , unspecified trimester (3) 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 (4) Rh negative state in antepartum period: Category: Medical Code(s): O26.899 - Other specified related conditions, unspecified trimester; Z67.91 - Unspecified blood type, Rh negative (5) Screening for genetic disease carrier status: Problem Comment: [facility] carrier screen 11/13/23 - + intermediate allele size detected for F ragile X, Positive carrier for Polycystic Kidney Disease, autosomal recessive Category: Medical Code(s): Z13.71 - Encounter for nonprocreative screening for genetic disease carrier status (6) Failure to progress in labor: Category: Medical Code(s): O62.2 - Other uterine inertia Plan: Plan for ?: Yes Additional information:: Cervix unchanged from this morning at 0715 when amniotomy performed. Pitocin reached 12. Mary requested to proceed with elective primary secondary to failure to progress in latent phase of labor. She doesn't think her baby is going to come vaginally. Discussed risks, benefits, expectations and possible complications of surgery. All questions addressed and answered. She voiced understanding of risks and possible complications. Consent form signed Proceed with elective primary
[2024-04-29] MEDS: CEFAZOLIN SODIUM 3 GM in 0.9 % SODIUM CHLORIDE 100 ML IV (18:35)
[2024-04-29 18:59] LABS: Cord Blood PH 7.37 (7.35-7.45)
--- NOTE | 2024-04-29 19:19 | SUR.OPER ---
1809-1st torres that was used on patient was removed due to defective balloon 1811- 2nd torres placed w/ no difficulty using sterile technique 1845- viable male born at this time 1856- Phillip Loomis RT called with cord gas of 7.37, Dr Tom notified
--- NOTE | 2024-04-29 19:33 | EXP.OP.NOTE ---
Date of procedure: 04/29/24 Pre-op Diagnosis:: 1. IUP at 40w2d 2. Failure to progress 3. Elective 4. Maternal obesity 5. Deedee-Danlos syndrome 6. Rh negative Post-op Diagnosis:: 1. IUP at 40w2d 2. Failure to progress 3. Elective 4. Maternal obesity 5. Deedee-Danlos syndrome 6. Rh negative Procedure performed:: Primary low transverse section Surgeon:: Toya Tom DO Resource Technician(s):: Nga Mckenna DO CAFETERIA ASSISTANT:: Cornelio Rojas Anesthesia: spinal Estimated blood loss (mL): 700 Clinical Note:: Ms Mary Menjivar is a 23 yo at 40w2d who presents for scheduled induction of labor full term. She has had good care. Baby is active. No contractions, leakage of fluid or vaginal bleeding. complicated by maternal obesity. GBS negative. Induction of labor was performed with Cytotec followed by Pitocin. Amniotomy performed at 1210 with clear fluid. Cervix unchanged from this morning at 0715. Pitocin reached 12. Mary requested to proceed with elective primary secondary to failure to progress in latent phase of labor. She doesn't think her baby is going to come vaginally. Operative findings:: 1. Live male baby, Zay, weighing 8 lb 3 oz with Apgars 8 (1 min), 9 (5 min) 2. Grossly normal appearing uterus, bilateral fallopian tubes and ovaries Operative note:: The risks, benefits and alternatives of the procedure were reviewed with the patient. Informed consent was obtained. Patient was taken to the operating room where spinal anesthesia was placed. The patient received 3 grams of Ancef preoperatively. Patient was placed in dorsal supine position with a leftward tilt. SCDs in place. Ag catheter was inserted and draining clear urine prior to the start of the procedure. heart tones were obtained. Vagina was prepped with Betadine swabs x 3. Patient was then prepped and draped in normal sterile fashion. Allis clamp test was performed to ensure adequate anesthesia. A Pfannenstiel skin incision was made 2 cm above pubic symphysis. This was carried through to underlying layer of fascia. Fascia was incised in midline, extended laterally with Penaloza scissors. Superior aspect of fascial incision was grasped with two Javon clamps, elevated up, and rectus muscle dissected off bluntly and sharply with Penaloza scissors. Inferior aspect of fascial incision was grasped with two Javon clamps, elevated up, and rectus muscle dissected off bluntly and sharply with Penaloza scissors.The retcus muscle was then in the midline and the peritoneum was entered bluntly with a digit. Peritoneal incision was then extended superiorly and inferiorly with good visualization of the bladder. Everardo retractor was inserted. The lower uterine segment was incised in a transverse fashion. Clear amniotic fluid was noted. Head was delivered without difficulty. Remainder of body was delivered without difficulty. Mouth and nares were bulb suctioned. Spontaneous cry was noted. Delayed cord clamping was performed for 60 seconds. The umbilical cord was clamped and cut. The infant was handed to awaiting pediatric staff in stable condition. Dr. Charles was present. Apgars were 8(1 min), 9(5 min). Cord blood was obtained. Gentle traction on the umbilical cord and uterine fundal massage delivered the placenta. Placenta was intact. Uterus was cleared of all clots and debris with a moist laparotomy sponge. Corners of the uterine incision were grasped with Allis clamps. The uterine incision was reapproximated with # 1 Vicryl suture in a running, locked stitch. Second layer of the same stitch was used to imbricate the incision. Vesicouterine peritoneum was reapproximated in a running locked stitch with 2-0 Vicryl suture. Hemostasis was noted. Posterior cul-de-sac was cleaned with moist laparotomy sponge. Gutters cleared of all clots and debris with a moist laparotomy sponge. Reinspection of the lower uterine segment demonstrated small amount of oozing. Jennifer was applied over uterine incision. Hemostasis was noted. At this point all instruments and sponges were removed from the pelvis.? The peritoneum was grasped with Genoveva clamps x 3. The peritoneum was reapproximated with 0 Vicryl suture in a running stitch. The corners of the fascia were grasped with Javon clamps, and the fascia was reapproximated with two # 1 Vicryl suture overlapped to the right of midline. Subcutaneous tissue was irrigated with clear return of fluids. The subcutaneous tissue was reapproximated with 3-0 Vicryl. The skin was reapproximated with metal leena. Telfa was placed over closed Pfannenstiel skin incision. At the end of the procedure, the uterus was firm with minimal vaginal bleeding. Patient tolerated the procedure well. Instrument, sponges and needle counts were correct x 2. Mom and baby were transported to recovery room in stable condition. Condition: stable Disposition: floor Specimens:: 1. Cord blood Complications:: None
[2024-04-29 19:40] VITALS: BP 130/71; PULSE 69; RESP 18; TEMP 36.7; O2SAT 100
--- NOTE | 2024-04-29 19:49 | P.PNANES_ITS ---
[facility] Disclaimer: The information contained in this section may have been updated after the patient was seen, as this information can be updated by other users. Medical History (Updated 04/29/24 @ 17:23 by Toya Tom DO) Failure to progress in labor Post term over 40 weeks Bronchitis Screening for genetic disease carrier status Rh negative state in antepartum period Maternal obesity affecting , antepartum Stomach cramps, generalized Deedee-Danlos syndrome Left knee pain Epigastric pain Surgical History H/O left knee surgery History of tonsillectomy History of placement of ear tubes Family History Other Cancer Coronary artery disease Diabetes Hyperlipidemia Hypertension Social History (Updated 04/28/24 @ 15:52 by Lupe Arreola RN) Smoking Status: Never smoker second hand exposure: No alcohol intake: never substance use type: denies use current occupational status: unemployed Travel in the last 8 weeks: None household members: family housing: house [facility] Anesthesia Checklist Patient Identification Patient Identification: Arm Band Structural Data Admitted From: Inpatient Planned Operative Procedure/s: Primary C/S Consent for Planned Operative Procedure(s) Verified: Yes Verified Documents: Surgical Consent and History and Physical Additional verifications Anesthesia Reactions: No Neurological Assessment Level of Consciousness: Awake, Alert and Appropriate Anesthesia Plan Anesthesia Risk discussed: Yes Anesthesia Plan: Verified ASA Class: III Anesthesia Type: Spinal (with Bilateral TAP Block)
[2024-04-29 19:50] VITALS: BP 124/79; PULSE 66; RESP 18; O2SAT 96
--- NOTE | 2024-04-29 19:52 | P.PNANES_ITS ---
[facility] Anesthesia Record Part I Anesthesia Record I Intake, IV Amount: 1,000 Hydration: Adequate Estimated blood loss (mL): 700 Urine output (mL): 300 Blood Products used (#): none Blood Pressure: 130/71 SaO2: 100 Pulse Rate: 68 Airway Patency: Patent Respiratory Rate: 16 Temperature: 98 F Patient is:: Awake and Stable Stable to PACU at:: 19:40
[2024-04-29 19:53] VITALS: BP 130/71; PULSE 68; RESP 16; TEMP 36.6; O2SAT 100
[2024-04-29 20:00] VITALS: BP 127/69; PULSE 65; RESP 17; O2SAT 100
[2024-04-29 20:10] VITALS: BP 133/68; PULSE 77; RESP 18; O2SAT 100
[2024-04-29] MEDS: OXYTOCIN/RINGERS LACTATE 30 UNITS/500 ML BAG 40 UNITS IV (20:16)
[2024-04-29 21:11] LABS: Microscopic,Cath URINE MICROSCOPIC (MICROSCOPIC)
[2024-04-29 21:13] LABS: Appearance,Urine/Cath CLEAR (Clear); Bilirubin,Cath Negative (Negative); Blood, Urine/Cath 1+ (Negative); Color,Urine/Cath YELLOW (Yellow); Glucose,Urine/Cath (UA) Negative (Negative); Ketones,Urine/Cath 1+ (Negative); Leukocyte Esterase,Cath Negative (Negative); Nitrate,Cath Negative (Negative); PH,Urine/Cath 6.5 (5.0-8.5); Protein,Urine/Cath Negative (Negative); Specific Gravity, Urine/Cath 1.015 (1.005-1.030)
[2024-04-29 21:27] LABS: WBC,Urine/Cath Occasional #/hpf (0-3)
[2024-04-30] MEDS: ACETAMINOPHEN 500MG TAB 1000 MG PO ×4 (01:58→19:19)
[2024-04-30] MEDS: KETOROLAC 30MG/ML VIAL 30 MG IV ×3 (01:58→13:32)
[2024-04-30] MEDS: CEFAZOLIN SODIUM 2 GM in 0.9 % SODIUM CHLORIDE 100 ML IV ×2 (03:28→09:58)
[2024-04-30 07:28] LABS: Basophils % 0.3 % (0.1-2.0); Eosinophils % 0.3 % (0.1-12.0); Hematocrit 35.5 % (37.0-47.0); Hemoglobin 11.9 g/dL (12.2-16.2); Lymphocytes # 1.4 K/mm3 (0.7-4.5); Mean Corpuscular HGB Conc 33.6 g/dL (31.8-35.4); Mean Corpuscular Hemoglobin 28.2 pg (27.0-31.2); Mean Corpuscular Volume 84.1 fl (81-99); Mean Platelet Volume 9.2 fl (7.4-10.4); Monocytes # 0.8 K/mm3 (0.1-1.0); Monocytes % 6.8 % (1.7-9.3); Neutrophils # 9.5 K/mm3 (1.8-7.8); Neutrophils % 80.6 % (37.0-80.0); Platelet Count 242 K/mm3 (142-424); Red Blood Count 4.23 M/mm3 (4.20-5.40); Red Cell Distribution Width 14.8 % (11.5-17.5); White Blood Count 11.8 K/mm3 (4.8-10.8)
[2024-04-30] MEDS: ENOXAPARIN 40MG/0.4ML SYRINGE 40 MG SQ (07:41)
[2024-04-30 08:15] VITALS: BP 147/84; PULSE 82; RESP 18; RESP 20; TEMP 36.9; O2SAT 98
--- NOTE | 2024-04-30 10:44 | P.PNANES_ITS ---
[facility] Anesthesia Record Part II Anesthesia Record Part II Discharge Time: 20:10 Destination: Obstetric PACU nurse assessment reviewed?: Yes Patient Condition:: Good Anesthesia Complications:: None Swallowing reflex intact?: Yes Airway Patency: Patent Cyanosis?: No Blood Pressure: 133/68 SaO2: 100 Respiratory Rate: 18 Pulse Rate: 77 Temperature: 98 F Mental Status: Alert & Oriented Pain level:: 0 Nausea and/or vomitting:: None Intake, IV Amount: 0 Hydration: Adequate
[2024-04-30 10:45] VITALS: BP 133/68; PULSE 77; RESP 18; TEMP 36.6; O2SAT 100
[2024-04-30 12:12] LABS: Rapid Plasma Reagin Ab Titer Non Reactive titer (NonRea<1:1)
[2024-04-30] MEDS: SENNA 8.6MG TABLET 8.6 MG PO (13:31)
--- NOTE | 2024-04-30 15:28 | P.PN_ITS ---
Subjective *Date: 04/30/24 *Time: 15:28 Interval history: POD # 1 s/p PLTCS Feeling well. Pain controlled. Formula feeding. Lochia is appropriate. Voiding without difficulty and passing flatus. Tolerating regular diet. Denies fever/chills, chest pain and shortness of breath. No headaches, vision changes, lightheadedness/dizziness. She admits to mild lower extremity swelling. Ambulating well ad lio. Medical Exam Vital signs and Labs for Last 24 Hours: Vital Signs Temp Pulse Pulse Resp BP BP Pulse Ox 04/30/24 10:45 18 04/30/24 08:15 98.4 F 82 20 147/84 H 98 04/30/24 08:15 98.4 F 82 18 147/84 H 98 04/29/24 20:10 77 18 133/68 100 04/29/24 20:00 65 17 127/69 100 04/29/24 19:53 98 F 68 16 130/71 04/29/24 19:50 66 18 124/79 96 04/29/24 19:40 98.0 F 69 18 130/71 100 O2 Del Method 04/30/24 10:45 04/30/24 08:15 Room Air 04/30/24 08:15 Room Air 04/29/24 20:10 Room Air 04/29/24 20:00 Room Air 04/29/24 19:53 04/29/24 19:50 Room Air 04/29/24 19:40 Room Air Intake and Output 04/29/24 04/30/24 04/30/24 23:59 07:59 15:59 Intake Total 1000 / 1000 0 / 0 Balance 1000 / 1000 0 / 0 Intake: Intake, Total IV Amount 1000 / 1000 0 / 0 Laboratory Results - last 24 hr 04/28/24 14:10: RPR Titer Non reactive 04/29/24 18:10: Urine Color Yellow, Urine Appearance Clear, Urine pH 6.5, Ur Specific [place] 1.015, Urine Protein Negative, Urine Glucose (UA) Negative, Urine Ketones 1+, Urine Blood 1+, Urine Nitrate Negative, Urine Bilirubin Negative, Urine Urobilinogen 1.0, Ur Leukocyte Esterase Negative, Urine RBC 10- 20, Urine WBC Occasional, Ur Squamous Epith Cells 3-5, Urine Bacteria None 04/29/24 18:58: Cord ABG pH 7.37 04/30/24 06:54: WBC 11.8 H, RBC 4.23, Hgb 11.9 L, Hct 35.5 L, MCV 84.1, MCH 28.2, MCHC 33.6, RDW 14.8, Plt Count 242, MPV 9.2, Neut % (Auto) 80.6 H, Lymph % (Auto) 12.0, [place] % (Auto) 6.8, Eos % (Auto) 0.3, Baso % (Auto) 0.3, Neut # (Auto) 9.5 H, Lymph # (Auto) 1.4, [place] # (Auto) 0.8, Eos # (Auto) 0.0, Baso # (Auto) 0.0 I & O for Labs for Last 24 Hours: Intake & Output 04/27/24 04/28/24 04/29/24 04/30/24 23:59 23:59 23:59 23:59 Intake Total 1000 / 1000 0 / 0 Balance 1000 / 1000 0 / 0 Weight 277 lb Head: Present atraumatic and normocephalic ENT: Present mucous membranes moist Neck: Present full ROM Respiratory: Present CTA bilaterally and normal respiratory effort Cardiac: Present Reg Rate and Rhythm GI: Present soft, tenderness (appropriate tenderness to palpation postoperatively) and normal bowel sounds; Absent distention Comments:: Pfannenstiel incision clean/dry/intact with metal leena in place. Uterine fundus firm and below umbilicus Rectal (female): Present deferred (female): Present deferred Extremities: Present normal inspection, full ROM and edema (trace bilateral lower extremity edema); Absent calf tenderness Neuro: Present alert, awake and moves all extremities Assessment and Plan *Assessment and plan (1) S/P section: Status: Acute Category: Surgical Code(s): Z98.891 - History of uterine scar from previous surgery (2) Failure to progress in labor: Status: Acute Category: Medical Code(s): O62.2 - Other uterine inertia (3) Post term over 40 weeks: Status: Acute Category: Medical Code(s): O48.0 - Post-term (4) Maternal obesity affecting , antepartum: Status: Acute Qualifiers: Obesity type affecting : unspecified obesity Qualified Code(s): O99.210 - Obesity complicating , unspecified trimester Category: Medical Code(s): O99.210 - Obesity complicating , unspecified trimester (5) Deedee-Danlos syndrome: Status: Chronic Category: Medical Code(s): Q79.6 - Deedee-Danlos syndromes (6) Rh negative state in antepartum period: Status: Acute Category: Medical Code(s): O26.899 - Other specified related conditions, unspecified trimester; Z67.91 - Unspecified blood type, Rh negative (7) Screening for genetic disease carrier status: Problem Comment: [facility] carrier screen 11/13/23 - + intermediate allele size detected for Fragile X, Positive carrier for Polycystic Kidney Disease, autosomal recessive Status: Acute Category: Medical Code(s): Z13.71 - Encounter for nonprocreative screening for genetic disease carrier status Plan Continue routine care Encouraged increased ambulation Plan d/c home POD # 3
[2024-04-30] MEDS: IBUPROFEN 400 MG TABLET 800 MG PO (19:19)
[2024-05-01] MEDS: IBUPROFEN 400 MG TABLET 800 MG PO ×3 (03:34→20:53)
[2024-05-01] MEDS: ACETAMINOPHEN 500MG TAB 1000 MG PO ×4 (03:34→18:51)
[2024-05-01] MEDS: SENNA 8.6MG TABLET 8.6 MG PO (08:14)
[2024-05-01] MEDS: ENOXAPARIN 40MG/0.4ML SYRINGE 40 MG SQ ×2 (08:14→20:52)
--- NOTE | 2024-05-01 11:02 | EXP.ACUTE.PN ---
Subjective *Date: 05/01/24 *Time: 11:02 Interval history: POD # 2 s/p PLTCS Feeling well. Pain controlled. Formula feeding. Lochia is appropriate. Voiding without difficulty and passing flatus. Tolerating regular diet. Denies fever/chills, chest pain and shortness of breath. No headaches, vision changes, lightheadedness/dizziness. She admits to mild lower extremity swelling. Ambulating well ad lio. Medical Exam Vital signs and Labs for Last 24 Hours: Laboratory Results - last 24 hr 04/28/24 14:10: RPR Titer Non reactive I & O for Labs for Last 24 Hours: Intake & Output 04/28/24 04/29/24 04/30/24 05/01/24 23:59 23:59 23:59 23:59 Intake Total 1000 / 1000 0 / 0 Balance 1000 / 1000 0 / 0 Weight 277 lb Head: Present atraumatic and normocephalic ENT: Present mucous membranes moist Neck: Present normal inspection and full ROM Respiratory: Present CTA bilaterally and normal respiratory effort Cardiac: Present Reg Rate and Rhythm GI: Present soft and normal bowel sounds; Absent distention or tenderness Comments:: Pfannenstiel incision clean/dry/intact with metal leena Rectal (female): Present deferred (female): Present deferred Extremities: Present full ROM; Absent edema or calf tenderness Neuro: Present alert, awake and moves all extremities Assessment and Plan *Assessment and plan (1) S/P section: Status: Acute Category: Surgical Code(s): Z98.891 - History of uterine scar from previous surgery (2) Failure to progress in labor: Status: Acute Category: Medical Code(s): O62.2 - Other uterine inertia (3) Post term over 40 weeks: Status: Acute Category: Medical Code(s): O48.0 - Post-term (4) Rh negative state in antepartum period: Status: Acute Category: Medical Code(s): O26.899 - Other specified related conditions, unspecified trimester; Z67.91 - Unspecified blood type, Rh negative (5) Maternal obesity affecting , antepartum: Status: Acute Qualifiers: Obesity type affecting : unspecified obesity Qualified Code(s): O99.210 - Obesity complicating , unspecified trimester Category: Medical Code(s): O99.210 - Obesity complicating , unspecified trimester (6) Deedee-Danlos syndrome: Status: Chronic Category: Medical Code(s): Q79.6 - Deedee-Danlos syndromes Plan Continue routine care Encouraged increased ambulation Plan d/c home tomorrow, POD # 3
[2024-05-01 15:26] VITALS: BP 130/68; PULSE 87; RESP 18; TEMP 36.7; O2SAT 100
[2024-05-01] MEDS: PRENATAL MULTIVITAMIN W/IRON 1 EACH PO (17:35)
[2024-05-01 20:49] VITALS: BP 154/99; PULSE 92; RESP 18; TEMP 36.8
[2024-05-01 20:53] VITALS: BP 150/63; PULSE 89
[2024-05-02 00:42] VITALS: BP 115/54; PULSE 90; RESP 18; TEMP 36.8
[2024-05-02 04:06] VITALS: BP 126/73; PULSE 83
--- NOTE | 2024-05-02 07:53 | EXP.DC.SUM ---
General Admission date:: 04/28/24 Discharge date: 05/02/24 HPI HPI HPI: POD # 3 s/p PLTCS Feeling well. Pain controlled. Formula feeding. Lochia is appropriate. Voiding without difficulty and passing flatus. Tolerating regular diet. Denies fever/chills, chest pain and shortness of breath. No headaches, vision changes, lightheadedness/dizziness. She admits to mild lower extremity swelling. Ambulating well ad lio. Hospital Course Hospital Course Hospital Course: Ms Mary Menjivar is a 23 yo at 40w2d who presents for scheduled induction of labor full term. She has had good care. Baby is active. No contractions, leakage of fluid or vaginal bleeding. complicated by maternal obesity. GBS negative. Induction of labor was performed with Cytotec followed by Pitocin. Amniotomy performed at 1210 with clear fluid. Cervix unchanged over about 10 hours. Pitocin reached 12. Mary requested to proceed with elective primary secondary to failure to progress in latent phase of labor. She doesn't think her baby is going to come vaginally. She underwent elective primary on 04/29/24. She delivered a live male baby, Zay, weighing 8 lb 3 oz with Apgars 8 (1 min), 9 (5 min). EBL 700 mL. She did well /postoperatively. Pain controlled. Formula feeding. Light lochia. Voiding without difficulty and passing flatus. Tolerating regular diet. Denies fever/chills, chest pain and shortness of breath. No headaches, dizziness/lightheadedness or vision changes. Vital signs stable, afebrile. Heart regular rate and rhythm. Lungs clear to auscultation. Abdomen soft, nontender. She had +1 bilateral lower extremity swelling. No calf tenderness to palpation. Ambulating well ad lio. Normal hospital course. She was discharged to home on POD # 3 with instructions to follow-up in the office in 1 week for staple removal. Exam Data for Last 24 hours Vital signs and Labs for Last 24 Hours: Temp Pulse Resp BP Pulse Ox O2 Del Method 98.3 F 83 18 126/73 100 Room Air 05/02/24 00:42 05/02/24 04:06 05/02/24 00:42 05/02/24 04:06 05/01/24 15:26 05/01/24 15:26 Laboratory Results - last 24 hr 04/28/24 14:10: Crossmatch ([facility]) See Detail I & O for Last 24 hours: Intake & Output 04/29/24 04/30/24 05/01/24 05/02/24 23:59 23:59 23:59 23:59 Intake Total 1000 / 1000 0 / 0 Balance 1000 / 1000 0 / 0 Constitutional Constitutional: no acute distress and cooperative *Routine HEENT Exam Head: Present normocephalic and atraumatic Eye: Absent conjunctivae pink ENT: Present mucous membranes moist *Routine Neck Exam Neck: Present full ROM *Routine Respiratory Exam Respiratory: Present CTA bilaterally and normal respiratory effort *Routine Cardiovascular Exam Cardiovascular: Present RRR *Routine Abdominal Exam Abdominal: Present soft and normoactive bowel sounds; Absent tenderness or distended Comments: Pfannenstiel incision clean/dry/intat with metal leena in place *Routine Rectal Exam Patient deferred: visual exam *Routine Exam Patient deferred: external exam *Routine Extremities Exam Extremities: Present edema (+1 bilateral lower extremity edema) and full ROM; Absent calf tenderness *Routine Neurological Exam Neurological: Present alert, moving all extremities and normal speech Routine Psychiatric Exam Psychiatric: Present normal affect and cooperative Results Data Completed and Pending Labs on day of discharge: Labs from last 24 hours 04/28/24 14:10 Crossmatch ([facility]) See Detail DS: Diagnosis Discharge Diagnosis (1) S/P section: Status: Acute Code(s): Z98.891 - History of uterine scar from previous surgery (2) Failure to progress in labor: Status: Acute Code(s): O62.2 - Other uterine inertia (3) Post term over 40 weeks: Status: Acute Code(s): O48.0 - Post-term (4) Rh negative state in antepartum period: Status: Acute Code(s): O26.899 - Other specified related conditions, unspecified trimester; Z67.91 - Unspecified blood type, Rh negative (5) Maternal obesity affecting , antepartum: Status: Acute Code(s): O99.210 - Obesity complicating , unspecified trimester Qualifiers: Obesity type affecting : unspecified obesity Qualified Code(s): O99.210 - Obesity complicating , unspecified trimester (6) Deedee-Danlos syndrome: Status: Chronic Code(s): Q79.6 - Deedee-Danlos syndromes Meds Home Medications and Allergies Home Medications ?Medication ?Instructions ?Recorded ?Confirmed ?Type vits no.126-ferrous fum 1 tab PO DAILY #30 tabs 10/05/23 04/28/24 Rx 28 mg iron-folic acid 800 mcg tablet (Classic ) pantoprazole 40 mg tablet,delayed 40 mg PO DAILY #30 tabs 02/16/24 04/28/24 Rx release latanoprost 0.005 % eye drops 1 drp Eye-Both DAILY 03/29/24 04/28/24 History ibuprofen 800 mg tablet 800 mg PO Q8H PRN pain #20 tabs 05/02/24 Rx oxycodone 5 mg tablet 5 mg PO Q4HP PRN Moderate Pain 05/02/24 Rx (4-6) #15 tabs New Prescriptions to Start Prescriptions: ibuprofen Toya Tom oxycodone Toya Tom Allergies Allergy/AdvReac Type Severity Reaction Status Date / Time No Known Allergies Allergy Verified 04/26/24 08:55 Discharge Plan Disposition Patient Disposition: Home, Self-Care Condition: Good Discharge Order Discharge Orders: Discharge Order (Routine); Ordered 05/02/24 Ordered By: Toya Tom Follow up Plan Follow up with: Toya Tom DO [Staff Physician] - 1 week Prescriptions/Medication Reconciliation: New oxycodone 5 mg Tablet 5 mg PO Q4HP PRN (Reason: Moderate Pain (4-6)) Qty: 15 0RF ibuprofen 800 mg tablet 800 mg PO Q8H PRN (Reason: pain) Qty: 20 0RF Continued pantoprazole 40 mg tablet,delayed release (DR/EC) 40 mg PO DAILY Qty: 30 2RF latanoprost 0.005 % drops 1 drp Eye-Both DAILY Classic 28 mg iron- 800 mcg tablet 1 tab PO DAILY Qty: 30 11RF Discontinued famotidine 40 mg tablet 40 mg PO DAILY Qty: 30 2RF Problem Reconciliation Problems Reviewed?: Yes Patient Discharge Instructions ACTIVITY: Limited activity DIET: continue same diet and regular diet Additional Instructions: Congratulations! Discharge: 1. Take 800 mg Ibuprofen every 8 hours as needed for pain. You can also take 500-1000 mg of Tylenol in between doses, every 6-8 hours. If pain persists you can take Oxycodone 5 mg, 1 tablet every 4-6 hours or longer as needed. 2. Nothing in the vagina for 6 weeks - no intercourse, douching or tampons. No tub baths/hot tubs or swimming pools - Drink plenty of fluids. - No strenuous activity or driving until released by your doctor. - Don't lift anything heavier than your . 3. Reasons to return to L&D or call On-Call doctor - fever (greater than 100.4) - heavy vaginal bleeding (soaking through 1 pad in less than 2 hours) - vaginal discharge (malodorous and/or purulent) - severe headaches not resolved by medication or rest and leg tenderness/edema 4. depression/blues - Normal to feel anxious/overwhelmed for first 2 weeks - Talk to your doctor if: severe anxiety, trouble bonding with baby, withdrawing from other family members, thoughts of harming yourself or others Patient Instructions: Depression, Hemorrhage, DI for , DI for Pre-eclampsia, H Post Discharge Instructions Print Language: Wolof Providers Primary Care Provider: Arely Beasley Admit Provider: Toya Tom Attending Provider: Toya Tom
[2024-05-02] MEDS: ENOXAPARIN 40MG/0.4ML SYRINGE 40 MG SQ (08:04)
== END 2024-05-02 11:20 | disposition home or self-care (01) | DRG 788 ==
PROVIDERS: Admitting Provider Obstetrics & Gynecology; PCP Physician Assistant; Visit Provider Obstetrics & Gynecology
PROC: 10D00Z1 Extraction of Products of Conception, Low, Open Approach (ICD-10-PCS; CPT 59514; principal; 2024-04-29 17:30)
DX: O63.0 Prolonged first stage (of labor) (principal); Z3A.40 40 weeks gestation of pregnancy; Z37.0 Single live birth; O61.0 Failed medical induction of labor
CPT/HCPCS: 59514; 36415; 59025; 80307; 81001; 82800; 85025; 86593; 86850; C9290; J0690; J1650; J1885; J2405; J3010; J7120

== ENCOUNTER 2024-06-05 09:32 | Emergency (ER) | payer OTHER, SELFPAY ==
[2024-06-05 09:50] VITALS: BP 123/78; PULSE 87; RESP 16; TEMP 37.1; O2SAT 98; BMI 43.9
--- NOTE | 2024-06-05 10:06 | EXP.UTC ---
Discharge Plan Disposition Patient Disposition: Home, Self-Care Condition: Good Prescriptions Prescriptions: New amoxicillin 875 mg tablet 875 mg PO Q12H Qty: 20 0RF methylprednisolone 4 mg Tablets,Dose Pack 4 mg PO DIRECTED 6 Days Qty: 21 0RF Rx Instructions: Take 1 pack as directed for 6 days [id number] [Bromfed DM] 2-30-10 mg/5 mL Syrup 5 ml PO Q6H PRN (Reason: Cough) Qty: 240 0RF No Action pantoprazole 40 mg tablet,delayed release (DR/EC) 40 mg PO DAILY Qty: 30 2RF latanoprost 0.005 % drops 1 drp Eye-Both DAILY ibuprofen 800 mg tablet 800 mg PO Q8H PRN (Reason: pain) Qty: 20 0RF Referrals Follow up/Referrals: Arely Beasley PA [Primary Care Provider] - See instructions Activity Restrictions/Add. Instructions Additional Instructions/Restrictions: Drink plenty of fluids. Take tylenol or ibuprofen for pain or fever. Take the medications as directed. Follow up with your regular doctor. GO TO THE ER FOR ANY WORSENING SYMPTOMS Clinical Impressions Clinical Impression: Sinusitis Instructions Patient Instructions: Sinusitis, DI for Sinusitis Print Language Print Language: Bahamian Discharge ED Provider: Yusuf Fiore [facility] General Stated complaint: congestion Mode of Arrival: Ambulatory Source of Information: Patient Limitations: No Limitations Time Seen by Provider: 06/05/24 10:01 Description of Symptoms (Recalled from Triage Doc. by RN): Reports congestion and cough. HEENT Symptoms (Recalled from RN notes): Yes Resp Symptoms (Recalled from RN notes): No Skin Symptoms (Recalled from RN notes): No MS Symptoms (Recalled from RN notes): No Functional Status (Recalled from RN notes): wnl Related Data Home Medications ?Medication ?Instructions ?Recorded ?Confirmed latanoprost 0.005 % eye drops 1 drp Eye-Both DAILY 03/29/24 06/03/24 Previous Rx's ?Medication ?Instructions ?Recorded pantoprazole 40 mg tablet,delayed 40 mg PO DAILY #30 tabs 02/16/24 release ibuprofen 800 mg tablet 800 mg PO Q8H PRN pain #20 tabs 05/02/24 amoxicillin 875 mg tablet 875 mg PO Q12H #20 tabs 06/05/24 [id number]-lzopyzsweityikj-HY 5 ml PO Q6H PRN Cough #240 mL 06/05/24 2 mg-30 mg-10 mg/5 mL oral syrup (Bromfed DM) methylprednisolone 4 mg tablets in 4 mg PO DIRECTED 6 days #21 tabs 06/05/24 a dose pack Allergies Allergy/AdvReac Type Severity Reaction Status Date / Time No Known Allergies Allergy Verified 06/03/24 10:16 Worker's Comp Is this a Worker's Comp case?: [facility] Disclaimer: The information contained in this section may have been updated after the patient was seen, as this information can be updated by other users. 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, autosomal recessive Rh negative state in antepartum period Maternal obesity affecting , antepartum Stomach cramps, generalized Deedee-Danlos syndrome Left knee pain Epigastric pain Surgical History S/P section H/O left knee surgery History of tonsillectomy History of placement of ear tubes Family History Other Cancer Coronary artery disease Diabetes Hyperlipidemia Hypertension Social History Smoking Status: Never smoker second hand exposure: No alcohol intake: never substance use type: denies use current occupational status: unemployed Travel in the last 8 weeks: None household members: family housing: house ROS Obtained: Yes All systems reviewed & no additional complaints except as documented Constitutional Constitutional: Reports poor appetite Eyes Eyes: Reports system reviewed and no additional complaints, except as documented ENT Ears, Nose, Mouth, and Throat: Reports as per HPI Cardiovascular Cardiovascular: Reports system reviewed and no additional complaints, except as documented and Denies chest pain Respiratory Respiratory: Denies shortness of breath, Denies chest congestion, Reports cough, Denies stridor and Denies wheezing Gastrointestinal Gastrointestingal: Reports system reviewed and no additional complaints, except as documented; Denies abdominal pain, diarrhea or vomiting Musculoskeletal Musculoskeletal: Reports system reviewed and no additional complaints, except as documented and Denies arthralgias Integumentary/Breasts Skin/Breast: Reports system reviewed and no additional complaints, except as documented and Denies rash Neurologic Neurologic: Denies paresthesias Allergic/Immunologic Allergic/Immunologic: Denies wheezing Physical Exam General General appearance: alert and in no apparent distress Eye Eye exam: Present normal appearance, PERRL and EOMI ENT ENT exam: Present mucous membranes moist and normal external ear exam Expanded ENT Exam External ear exam: Present normal external inspection TM/Canal exam: Bilateral TM: erythema and bulging Nose exam: Absent sinus tenderness Nasal speculum exam: Bilateral: normal Mouth exam: Present normal external inspection; Absent drooling Teeth exam: Present normal inspection Throat exam: Present tonsillar erythema and tonsillomegaly Neck Neck exam: Present normal inspection, full ROM and trachea midline; Absent tenderness, lymphadenopathy or thyromegaly Chest Chest inspection: Present normal inspection and symmetric chest wall rise; Absent tenderness or rash Respiratory Respiratory exam: Present normal lung sounds bilaterally; Absent respiratory distress, wheezes, stridor or accessory muscle use Cardiovascular Cardiovascular exam: Present regular rate, normal rhythm and normal heart sounds Abdominal Exam Abdominal exam: Present soft; Absent distention, tenderness, guarding, rebound or rigidity Extremities Exam Extremities exam: Present normal inspection, full ROM and normal capillary refill; Absent tenderness or calf tenderness Back Exam Back exam: Present normal inspection and full ROM; Absent tenderness Neurological Exam Neurological exam: Present alert and oriented X3 Psychiatric Psychiatric exam: Present normal affect and normal mood Skin Skin exam: Present warm, dry, intact and normal color Lymphatic Lymphatic Findings: no adenopathy Medical Decision Making Medical Records Medical records reviewed: No I reviewed the patient's medical records. Ilan Inquiry Pt receiving controlled substance: No Vital Signs: 06/05/24 09:50 Temperature 98.7 F Temperature Source Oral Pulse Rate [Radial] 87 Respiratory Rate 16 Blood Pressure [Right Arm] 123/78 Blood Pressure Mean [Right Arm] 93 Blood Pressure Source [Right Arm] Automatic Cuff Blood Pressure Position [Right Arm] Sitting 02 Sat by Pulse Oximetry 98 Oxygen Delivery Method Room Air
[2024-06-05 10:22] VITALS: BP 123/78; PULSE 87; RESP 16; TEMP 37.1; O2SAT 98
== END 2024-06-05 10:23 | disposition home or self-care (01) ==
PROVIDERS: Emergency Provider Nurse Practitioner Family; PCP Physician Assistant
DX: J01.90 Acute sinusitis, unspecified (principal); R05.9 Cough, unspecified
CPT/HCPCS: 99212; 99214; G0463

== ENCOUNTER 2024-06-23 08:23 | Day surgery (SDC) | payer OTHER, SELFPAY ==
[2024-06-22 07:50] VITALS: BMI 42.9
[2024-06-23 08:42] VITALS: BP 128/89; PULSE 86; RESP 18; TEMP 36.7; O2SAT 100
[2024-06-23] MEDS: LIDOCAINE 1% 20ML MDV 20 ML (09:15)
[2024-06-23 09:28] VITALS: BP 125/80; PULSE 87; RESP 16; O2SAT 99
--- NOTE | 2024-06-23 09:30 | EXP.OP.NOTE ---
Date of procedure: 06/23/24 Pre-op Diagnosis:: 7 mm right upper extremity soft tissue mass (proximal forearm) Post-op Diagnosis:: Same Procedure performed:: Excision of 7 mm right upper extremity soft tissue mass Surgeon:: Jose Elias Jimenes MD Anesthesia: local Estimated blood loss (mL): 5 Operative findings:: Lesion excised in toto Operative note:: After informed consent was obtained the patient was taken to the procedure room. The central portion of her right upper extremity was prepped and draped in a sterile fashion. After infiltration with local anesthetic an elliptical incision was made around the lesion. The lesion was sharply excised in toto and passed off for pathologic evaluation. Electrocautery was utilized to achieve hemostasis. Skin was reapproximated with 5-0 nylon in an interrupted/mattress fashion. Dressings were applied and the patient was discharged home in stable condition. Condition: stable Disposition: PACU Specimens:: Right upper extremity soft tissue mass Complications:: No immediate
== END 2024-06-23 09:33 | disposition home or self-care (01) ==
PROVIDERS: PCP Physician Assistant; Visit Provider Surgery
PROC: (CPT 25075; principal; 2024-06-23 09:00)
DX: R22.31 Localized swelling, mass and lump, right upper limb (principal)
CPT/HCPCS: 25075

== ENCOUNTER 2024-07-10 10:17 | Emergency (ER) | payer OTHER, SELFPAY ==
[2024-07-10 10:30] VITALS: BP 120/71; PULSE 80; RESP 20; TEMP 36.9; O2SAT 97; BMI 42.2
--- NOTE | 2024-07-10 10:36 | EXP.UTC ---
Discharge Plan Disposition Patient Disposition: Home, Self-Care Condition: Good Prescriptions Prescriptions: New amoxicillin 875 mg tablet 875 mg PO Q12H Qty: 20 0RF fluticasone propionate [Flonase Allergy Relief] 50 mcg/actuation spray,suspension 1 - 2 spray intranasal DAILY Qty: 16 0RF Rx Instructions: administer into each nostril daily ciprofloxacin-dexamethasone 0.3-0.1 % drops,suspension 4 drp otic (ear) Q12H 7 Days Qty: 7.5 0RF Rx Instructions: in left ear as directed No Action pantoprazole 40 mg tablet,delayed release (DR/EC) 40 mg PO DAILY Qty: 30 2RF latanoprost 0.005 % drops 1 drp Eye-Both DAILY Referrals Follow up/Referrals: Arely Beasley PA [Primary Care Provider] - See instructions Activity Restrictions/Add. Instructions Additional Instructions/Restrictions: Take medication as prescribed Use flonase as directed Use ear drops as prescribed Over the counter Motrin and/or Tylenol for pain and fever Follow up with your Family Doctor if no improvement or any worsening of symptoms Clinical Impressions Clinical Impression: Otitis media Qualifiers: Otitis media type: unspecified Laterality: left Qualified Code(s): H66.92 - Otitis media, unspecified, left ear Instructions Patient Instructions: Middle Ear Infection, Amoxicillin, Ciprofloxacin and Dexamethasone Otic Print Language Print Language: Frisian Discharge ED Provider: Martha Escalera [facility] General Stated complaint: left ear pain Time Seen by Provider: 07/10/24 10:36 History of Present Illness Provider Complaint: Patient states that she has been having pain and pressure in her left ear and feels like her hearing is muffled in there States got worse last night and this morning her ear is hurting worse so she came in to get it checked Related Data Home Medications ?Medication ?Instructions ?Recorded ?Confirmed latanoprost 0.005 % eye drops 1 drp Eye-Both DAILY 03/29/24 06/29/24 Previous Rx's ?Medication ?Instructions ?Recorded pantoprazole 40 mg tablet,delayed 40 mg PO DAILY #30 tabs 02/16/24 release amoxicillin 875 mg tablet 875 mg PO Q12H #20 tabs 07/10/24 ciprofloxacin 0.3 %-dexamethasone 4 drp otic (ear) Q12H 7 days #7.5 07/10/24 0.1 % ear drops,suspension mL fluticasone propionate 50 1 - 2 spray intranasal DAILY #16 07/10/24 mcg/actuation nasal grams spray,suspension (Flonase Allergy Relief) Allergies Allergy/AdvReac Type Severity Reaction Status Date / Time No Known Allergies Allergy Verified 06/29/24 13:06 [facility] Disclaimer: The information contained in this section may have been updated after the patient was seen, as this information can be updated by other users. Medical History (Updated 07/10/24 @ 10:41 by Martha Escalera APRN) Failure to progress in labor Post term over 40 weeks Bronchitis Screening for genetic disease carrier status Rh negative state in antepartum period Maternal obesity affecting , antepartum Stomach cramps, generalized Deedee-Danlos syndrome Left knee pain Epigastric pain Surgical History (Updated 06/29/24 @ 13:07 by MONA Wooten) History of local excision of skin lesion History of laparoscopic cholecystectomy History of H/O left knee surgery History of tonsillectomy History of placement of ear tubes Family History Other Cancer Coronary artery disease Diabetes Hyperlipidemia Hypertension Social History Smoking Status: Never smoker second hand exposure: No alcohol intake: never substance use type: denies use current occupational status: unemployed Travel in the last 8 weeks: None household members: family housing: house ROS Obtained: Yes All systems reviewed & no additional complaints except as documented and Yes Systems reviewed as appropriate & no additional complaints except as documented Constitutional Constitutional: Reports system reviewed and no additional complaints, except as documented and Reports as per HPI ENT Ears, Nose, Mouth, and Throat: Reports system reviewed and no additional complaints, except as documented, Reports as per HPI and Reports otalgia Cardiovascular Cardiovascular: Reports system reviewed and no additional complaints, except as documented and Reports as per HPI Respiratory Respiratory: Reports system reviewed and no additional complaints, except as documented and Reports as per HPI Gastrointestinal Gastrointestingal: Reports system reviewed and no additional complaints, except as documented and as per HPI Physical Exam General General appearance: alert and in no apparent distress ENT ENT exam: Present mucous membranes moist Expanded ENT Exam TM/Canal exam: Left TM: erythema and loss of landmarks Respiratory Respiratory exam: Present normal lung sounds bilaterally; Absent respiratory distress or wheezes Cardiovascular Cardiovascular exam: Present regular rate, normal rhythm and normal heart sounds Abdominal Exam Abdominal exam: Present soft and normal bowel sounds; Absent distention or tenderness Neurological Exam Neurological exam: Present alert, oriented X3 and normal gait Psychiatric Psychiatric exam: Present normal affect and normal mood Skin Skin exam: Present warm, dry, intact and normal color Medical Decision Making Medical Records Screening: Per USPSTF and CDC recommendations, given the prevalence of disease in our region, it is our hospital?s policy to screen for HIV and viral Hepatitis for all patients aged 18 and over and those with ongoing risk factors. Ilan Inquiry Pt receiving controlled substance: No Ilan was queried for this patient: No
[2024-07-10 10:42] VITALS: BP 120/71; PULSE 80; RESP 20; TEMP 36.9; O2SAT 97
== END 2024-07-10 10:44 | disposition home or self-care (01) ==
PROVIDERS: Emergency Provider Nurse Practitioner; PCP Physician Assistant
DX: H66.92 Otitis media, unspecified, left ear (principal)
CPT/HCPCS: 99213; G0381

== ENCOUNTER 2024-07-14 12:16 | Outpatient (CLI) | payer OTHER, SELFPAY ==
[2024-07-14 12:33] LABS: Basophils % 0.9 % (0.1-2.0); Eosinophils % 0.7 % (0.1-12.0); Hematocrit 36.9 % (37.0-47.0); Hemoglobin 12.6 g/dL (12.2-16.2); Lymphocytes # 1.2 K/mm3 (0.7-4.5); Lymphocytes % 28.7 % (10-50); Mean Corpuscular HGB Conc 34.1 g/dL (31.8-35.4); Mean Corpuscular Hemoglobin 26.6 pg (27.0-31.2); Mean Platelet Volume 8.2 fl (7.4-10.4); Monocytes # 0.4 K/mm3 (0.1-1.0); Monocytes % 9.8 % (1.7-9.3); Neutrophils # 2.5 K/mm3 (1.8-7.8); Neutrophils % 59.8 % (37.0-80.0); Platelet Count 243 K/mm3 (142-424); Red Blood Count 4.73 M/mm3 (4.20-5.40); Red Cell Distribution Width 14.1 % (11.5-17.5); White Blood Count 4.1 K/mm3 (4.8-10.8)
[2024-07-14 13:40] LABS: Chloride 104 mmol/L (98-107)
[2024-07-14 13:41] LABS: Albumin Level 4.9 g/dl (3.5-5.0); Potassium 3.7 mmoL/L (3.5-5.1); Sodium 140 mmol/L (136-145)
[2024-07-14 13:43] LABS: Amylase 68 U/L (30-110)
[2024-07-14 13:44] LABS: Alanine Aminotransferase 36 U/L (12-78); Albumin/Globulin Ratio 1.6 (1.1-1.8); Alkaline Phosphatase 104 U/L (38-126); Anion Gap 14.7 mEq/L (5-15); Aspartate Amino Transferase 36 U/L (14-36); Bilirubin,Total 0.9 mg/dl (0.2-1.3); Blood Urea Nitrogen 10 mg/dl (7-17); Calcium 9.8 mg/dl (8.4-10.2); Carbon Dioxide 25 mmol/L (22.0-30.0); Estimated Glomerular Filt Rate 103 ml/min (>60); GFR (African American) 124 ML/MIN (>60); Glucose 84 mg/dl (74-100); Lipase 209 U/L (23-300); Total Protein,Serum 7.9 g/dl (6.3-8.2)
== END 2024-07-14 23:59 | disposition home or self-care (01) ==
LOC: LAB 12:17
PROVIDERS: PCP Physician Assistant; Visit Provider Family Medicine
DX: R10.9 Unspecified abdominal pain (principal)
CPT/HCPCS: 36415; 80053; 82150; 83690; 85025

== ENCOUNTER 2024-07-22 08:08 | Emergency (ER) | payer OTHER, SELFPAY ==
[2024-07-22 08:29] VITALS: BP 119/73; PULSE 97; RESP 20; TEMP 36.8; O2SAT 99; BMI 44.1
--- NOTE | 2024-07-22 08:30 | EXP.UTC ---
Discharge Plan Disposition Patient Disposition: Home, Self-Care Condition: Good Prescriptions Prescriptions: New benzonatate 100 mg capsule 100 mg PO TIDP PRN (Reason: Cough) Qty: 30 0RF methylprednisolone 4 mg Tablets,Dose Pack 4 mg PO DIRECTED 6 Days Qty: 21 0RF Rx Instructions: Take 1 pack as directed for 6 days No Action amoxicillin 875 mg tablet 875 mg PO Q12H Qty: 20 0RF fluticasone propionate [Flonase Allergy Relief] 50 mcg/actuation spray,suspension 1 - 2 spray intranasal DAILY Qty: 16 0RF Rx Instructions: administer into each nostril daily ciprofloxacin-dexamethasone 0.3-0.1 % drops,suspension 4 drp otic (ear) Q12H 7 Days Qty: 7.5 0RF Rx Instructions: in left ear as directed Referrals Follow up/Referrals: Arely Beasley PA [Primary Care Provider] - See instructions Activity Restrictions/Add. Instructions Additional Instructions/Restrictions: Drink plenty of fluids. Take tylenol or ibuprofen for pain or fever. Take the medications as directed. Follow up with your regular doctor. GO TO THE ER FOR ANY WORSENING SYMPTOMS Clinical Impressions Clinical Impression: Acute bronchitis, Acute viral syndrome Instructions Patient Instructions: DI for Acute Bronchitis, Methylprednisolone Print Language Print Language: Pashto Discharge ED Provider: Yusuf Fiore [facility] General Stated complaint: cough, congestion Time Seen by Provider: 07/22/24 08:30 Related Data Previous Rx's ?Medication ?Instructions ?Recorded amoxicillin 875 mg tablet 875 mg PO Q12H #20 tabs 07/10/24 ciprofloxacin 0.3 %-dexamethasone 4 drp otic (ear) Q12H 7 days #7.5 07/10/24 0.1 % ear drops,suspension mL fluticasone propionate 50 1 - 2 spray intranasal DAILY #16 07/10/24 mcg/actuation nasal grams spray,suspension (Flonase Allergy Relief) benzonatate 100 mg capsule 100 mg PO TIDP PRN Cough #30 caps 07/22/24 methylprednisolone 4 mg tablets in 4 mg PO DIRECTED 6 days #21 tabs 07/22/24 a dose pack Allergies Allergy/AdvReac Type Severity Reaction Status Date / Time No Known Allergies Allergy Verified 06/29/24 13:06 [facility] Disclaimer: The information contained in this section may have been updated after the patient was seen, as this information can be updated by other users. Medical History (Updated 07/22/24 @ 08:52 by Yusuf Fiore APRN) Failure to progress in labor Post term over 40 weeks Bronchitis Screening for genetic disease carrier status Rh negative state in antepartum period Maternal obesity affecting , antepartum Stomach cramps, generalized Deedee-Danlos syndrome Left knee pain Epigastric pain Surgical History (Updated 06/29/24 @ 13:07 by MONA Wooten) History of local excision of skin lesion History of laparoscopic cholecystectomy History of H/O left knee surgery History of tonsillectomy History of placement of ear tubes Family History Other Cancer Coronary artery disease Diabetes Hyperlipidemia Hypertension Social History Smoking Status: Never smoker second hand exposure: No alcohol intake: never substance use type: denies use current occupational status: unemployed Travel in the last 8 weeks: None household members: family housing: house ROS Obtained: Yes All systems reviewed & no additional complaints except as documented Constitutional Constitutional: Reports poor appetite Eyes Eyes: Reports system reviewed and no additional complaints, except as documented ENT Ears, Nose, Mouth, and Throat: Reports as per HPI Cardiovascular Cardiovascular: Reports system reviewed and no additional complaints, except as documented and Denies chest pain Respiratory Respiratory: Denies shortness of breath, Reports chest congestion, Reports cough, Denies stridor and Denies wheezing Gastrointestinal Gastrointestingal: Reports system reviewed and no additional complaints, except as documented; Denies abdominal pain, diarrhea or vomiting Musculoskeletal Musculoskeletal: Reports system reviewed and no additional complaints, except as documented and Denies arthralgias Integumentary/Breasts Skin/Breast: Reports system reviewed and no additional complaints, except as documented and Denies rash Neurologic Neurologic: Denies paresthesias Allergic/Immunologic Allergic/Immunologic: Denies wheezing Physical Exam General General appearance: alert and in no apparent distress Eye Eye exam: Present normal appearance, PERRL and EOMI ENT ENT exam: Present mucous membranes moist and normal external ear exam Expanded ENT Exam External ear exam: Present normal external inspection TM/Canal exam: Bilateral TM: erythema and bulging Nose exam: Absent sinus tenderness Nasal speculum exam: Bilateral: normal Mouth exam: Present normal external inspection; Absent drooling Teeth exam: Present normal inspection Throat exam: Present tonsillar erythema and tonsillomegaly Neck Neck exam: Present normal inspection, full ROM and trachea midline; Absent tenderness, lymphadenopathy or thyromegaly Chest Chest inspection: Present normal inspection and symmetric chest wall rise; Absent tenderness or rash Respiratory Respiratory exam: Present normal lung sounds bilaterally; Absent respiratory distress, wheezes, stridor or accessory muscle use Cardiovascular Cardiovascular exam: Present regular rate, normal rhythm and normal heart sounds Abdominal Exam Abdominal exam: Present soft; Absent distention, tenderness, guarding, rebound or rigidity Extremities Exam Extremities exam: Present normal inspection, full ROM and normal capillary refill; Absent tenderness or calf tenderness Back Exam Back exam: Present normal inspection and full ROM; Absent tenderness Neurological Exam Neurological exam: Present alert and oriented X3 Psychiatric Psychiatric exam: Present normal affect and normal mood Skin Skin exam: Present warm, dry, intact and normal color Lymphatic Lymphatic Findings: no adenopathy Medical Decision Making Medical Records Medical records reviewed: No I reviewed the patient's medical records. Screening: Per USPSTF and CDC recommendations, given the prevalence of disease in our region, it is our hospital?s policy to screen for HIV and viral Hepatitis for all patients aged 18 and over and those with ongoing risk factors. Ilan Inquiry Pt receiving controlled substance: No Lab Data Lab results reviewed: Yes I reviewed the patient's lab results.
[2024-07-22 08:59] VITALS: BP 119/73; PULSE 97; RESP 20; TEMP 36.8
== END 2024-07-22 09:00 | disposition home or self-care (01) ==
PROVIDERS: Emergency Provider Nurse Practitioner Family; PCP Physician Assistant
DX: J20.9 Acute bronchitis, unspecified (principal); B34.9 Viral infection, unspecified
CPT/HCPCS: 99213; G0381

== ENCOUNTER 2024-12-19 17:20 | Outpatient (CLI) | payer OTHER, SELFPAY ==
[2024-12-19 19:05] LABS: Basophils # 0.1 K/mm3 (0-0.2); Basophils % 0.7 % (0.1-2.0); Eosinophils # 0.1 K/mm3 (0.0-0.4); Eosinophils % 1.3 % (0.1-12.0); Hematocrit 43.7 % (37.0-47.0); Hemoglobin 13.6 g/dL (12.2-16.2); Lymphocytes # 2.1 K/mm3 (0.7-4.5); Lymphocytes % 24.5 % (10-50); Mean Corpuscular HGB Conc 31.1 g/dL (31.8-35.4); Mean Corpuscular Hemoglobin 24.8 pg (27.0-31.2); Mean Corpuscular Volume 79.6 fl (81-99); Mean Platelet Volume 10.1 fl (7.4-10.4); Monocytes # 0.4 K/mm3 (0.1-1.0); Monocytes % 5.2 % (1.7-9.3); Neutrophils # 5.8 K/mm3 (1.8-7.8); Neutrophils % 68.1 % (37.0-80.0); Platelet Count 331 K/mm3 (142-424); Red Blood Count 5.49 M/mm3 (4.20-5.40); White Blood Count 8.5 K/mm3 (4.8-10.8)
[2024-12-19 20:18] LABS: HIV Combo NEGATIVE (Negative)
[2024-12-19 20:26] LABS: Hepatitis C Ab Qual. W/ RFX NEGATIVE (Negative)
[2024-12-19 20:46] LABS: Albumin Level 5.4 g/dl (3.5-5.0); Chloride 103 mmol/L (98-107); Potassium 4.5 mmoL/L (3.5-5.1); Sodium 139 mmol/L (136-145)
[2024-12-19 20:49] LABS: Alanine Aminotransferase 44 U/L (12-78); Albumin/Globulin Ratio 1.6 (1.1-1.8); Alkaline Phosphatase 112 U/L (38-126); Anion Gap 19.5 mEq/L (5-15); Aspartate Amino Transferase 53 U/L (14-36); Blood Urea Nitrogen 13 mg/dl (7-17); Calcium 10.1 mg/dl (8.4-10.2); Carbon Dioxide 21 mmol/L (22.0-30.0); Estimated Glomerular Filt Rate 103 ml/min (>60); GFR (African American) 124 ML/MIN (>60); Globulin 3.3 g/dL (1.3-3.2); Total Protein,Serum 8.7 g/dl (6.3-8.2)
[2024-12-19 21:43] LABS: Glucose 47 mg/dl (74-100)
--- NOTE | 2024-12-19 21:48 | EXP.EVENT.NO ---
I was contacted by laboratory about a critical lab result of a glucose in the high 40s. I have not evaluated this patient, in the context of undifferentiated hypoglycemia I had charge nurse contact to see how the patient was feeling. Given that she has a lack of serious comorbidities or insulin-dependent diabetes based on basic chart review I doubt that she has critical pathology that are causing her hypoglycemia. Charge nurse will see how patient feels to see if evaluation in the emergency department is warranted or if patient is asymptomatic we will follow-up on an outpatient basis.
--- NOTE | 2024-12-19 21:50 | PC.NURSE ---
Called patient at ED MD's request and notified her of low glucose. Pt states she has eaten since blood work drawn earlier today. Pt states she feels fine. Encouraged to come to the ED if she feels ill later.
== END 2024-12-19 23:59 | disposition home or self-care (01) ==
LOC: LAB 17:22
PROVIDERS: PCP Physician Assistant; Visit Provider Physician Assistant
DX: Z11.4 Encounter for screening for human immunodeficiency virus [HIV] (principal); Z11.59 Encounter for screening for other viral diseases; R10.30 Lower abdominal pain, unspecified; Z83.2 Family history of diseases of the blood and blood-forming organs and certain disorders involving the immune mechanism
CPT/HCPCS: 36415; 80053; 85025; 86803; 87389

== ENCOUNTER 2024-12-30 10:03 | Outpatient (CLI) | payer OTHER, SELFPAY ==
[2025-01-02 13:09] LABS: Factor V Activity 82 % (70-150)
== END 2024-12-30 23:59 | disposition home or self-care (01) ==
LOC: LAB 10:05
PROVIDERS: PCP Physician Assistant; Visit Provider Physician Assistant
DX: Z83.2 Family history of diseases of the blood and blood-forming organs and certain disorders involving the immune mechanism (principal)
CPT/HCPCS: 36415; 85220

== ENCOUNTER 2025-01-06 09:17 | Outpatient (CLI) | payer OTHER, SELFPAY ==
--- OUTSIDE RECORDS SUMMARY | 2025-01-06 09:19 | XMS_ITS | Continuity of Care Document ---
Author Organization [facility] Phone Care Team Providers Care Job Coaching Name Role Phone HELEN ESTRADA Primary Care HELEN ESTRADA Primary Attending HELEN ESTRADA Unavailable HELEN ESTRADA Admitting ALLERGIES AND ADVERSE REACTIONS ALLERGIES AND ADVERSE REACTIONS Code System Allergy Substance Adverse Reaction Date Reaction (Severity) Comment Status Reported By Updated By No Known Allergies [id number] on June 27, 2024 11:34:12 AM [facility] RESULTS Patient: FRANKO Curiel Date of : [birth year] 0 LABORATORY RESULTS Information is not available LABORATORY NARRATIVE RESULTS Information is not available RADIOLOGY RESULTS ORDER 100: CT ABD PEL W/W/O (LOINC: 66001-1) ORDER DATE: December 09, 2024 12:50:00 PM [facility] PERFORMING LAB: [address] [id number] Final Result Date: December 09, 2024 2:06:[address] [address] Name: RADHA ABDUL Exam Date: 12/09/2024 : 2000 Age 24 years Gender: F Physician: HELEN ESTRADA Facility: [facility] Facility HSV: Outpatient Exam: CT ABD PEL W/W/O EXAM DESCRIPTION: CT ABD PEL W/W/O CLINICAL HISTORY: 24 years Female, disorder of kidney and ureter unspecified COMPARISON: 06/19/2024 TECHNIQUE: CT of the abdomen and pelvis performed both prior to and after the IV administration of contrast utilizing low-dose techniques such as dose modulation and iterative reconstructions. FINDINGS: The lung bases are clear. The gallbladder has been removed. Small simple cyst left kidney. The solid organs are otherwise unremarkable. The bowel is unremarkable. The appendix is normal. No evidence of ascites. Small fat-containing umbilical hernia. The bones and soft tissues are unremarkable. IMPRESSION: Small fat-containing umbilical hernia. Electronically signed by: Harsha Duvall MD 12/10/2024 04:35 AM EDT Dictated By: Harsha Duvall Transcribed By: Transcribed On: 12/09/2024 10:06 AM Electronically signed by: Harsha Duvall 12/09/2024 Thank you for referring RADHA ABDUL to [facility]. Legally authenticated by ADRI VIDALES 2024-12-09 10:06:08 PATHOLOGY NARRATIVE RESULTS Information is not available MICROBIOLOGY RESULTS No Micro Labs/Results Exist for Patient BLOOD ADMIN RESULTS Information is not available MEDICATIONS HOME MEDICATIONS Status RXNORM NDC Medication Dose Route Frequency Dates Comments Reported By Updated By Drug Treatment Unknown DISCHARGE MEDICATIONS Status RXNORM NDC Medication Dose Route Frequency Dates Comments Physician Updated By No Discharge Medication Info rmation Available INPATIENT MEDICATIONS Status RXNORM NDC Medication Dose Route Frequency Rat e Quantity Dates Comments Physician Updated By No Inpatient Medication Info rmation Available SOCIAL HISTORY SOCIAL HISTORY SNOMED-CT Social History Element Description Effective Dates Offered Cessation Comment UpdatedBy [id number] Historical Tobacco smoking status Never Smoked [id number] on June 23, 2024 3:02:00 PM [facility] SOCIAL HISTORY - Gender Sex: Female SOCIAL HISTORY - Status : status i nformation is not available Intention in Next Year: intention information is not available SOCIAL HISTORY - Sexual Behavior Sexual Orientation Gender Identity SNOMED-CT Description SNO MED -CT Description Activity Level No of Partners Partner Type UpdatedBy Information is not available HEALTH CONCERNS Problems Concern Status Health Concern problem infor mation not available. Smoking Status Status Years Used Consumed packs p er day Health Concern smoking histo ry information not available. Family History Concern Status Health Concern family histor y information not available. ENCOUNTERS ENCOUNTER INFORMATION Reason for Visit CT Admission December 09, 2024 12:42:[address] [id number] Discharge December 09, 2024 12:42:00 PM UTC D ISCHARGED TO HOME OR SELF CARE ENCOUNTER DIAGNOSES Notes information is not celina ilable. Code System Diagnosis Onset Date Diagnosis information is not available. ABSTRACT DIAGNOSES Code System Diagnosis Updated By N28.9 ICD10 DISORDER OF KIDN EY AND URETER, UNSPECIFIED [id number] on December 05, 2024 1:14:50 PM UTC N28.9 ICD10 DISORDER OF KIDN EY AND URETER, UNSPECIFIED [id number] on December 13, 2024 8:37:41 AM UTC K42.9 ICD10 UMBILICAL HERNIA WITHOUT OBSTRUCTION OR GANGRENE [id number] on December 13, 2024 8:37:58 AM UTC CARE TEAM Care Job Coaching Role HELEN ESTRADA Primary Care HELEN ESTRADA Primary Attending HELEN ESTRADA Referring HELEN STONE Admitting CARE TEAM CARE income tax expert Role on Team Status Start Date End Date Update d By SEAN Mckinney PCP normal December 05, 2024 1:14:50 PM UTC December 09, 2024 12:42:00 PM UTC [id number] on December 05, 2024 1:14:50 PM UTC STONE HELEN Mckinney Referring normal December 05, 2024 1:14:50 PM UTC December 09, 2024 12:42:00 PM UTC [id number] on December 05, 2024 1:14:50 PM UTC SAEN Mckinney Attending normal December 05, 2024 1:14:50 PM UTC December 09, 2024 12:42:00 PM UTC [id number] on December 05, 2024 1:14:50 PM UTC STONE HELEN Mckinney Admitting normal December 05, 2024 1:14:50 PM UTC December 09, 2024 12:42:00 PM UTC [id number] on December 05, 2024 1:14:50 PM UTC
--- NOTE | 2025-01-06 09:22 | CA_ITS ---
APPROVED REPORT EXAM: Comprehensive 2D, Doppler, and color-flow Echocardiogram [employer] Associate: Soledad Low RDCS Ht: 5 ft 7 in Wt: 251lbs BSA: 2.23 BP: 110/70 mmHg Indications: TEMO-DANLOS SYNDROME,SMOKER,SLEEP APNEA M-Mode Dimensions RVDd 1.40 cm (0.9-2.6) LA Diam 3.30 cm (1.9-4.0) LVDd 5.83 cm (3.5-5.7) LVDs 4.26 cm (3.5-5.7) IVSd 0.61 cm (0.6-1.1) PWd 0.72 cm (0.6-1.1) EF (Teich) 51.80% FS 26.90% EDV (Teich) 168.50 mL TAPSE 1.74 (<1.7) ESV (Teich) 81.30 mL LV Diastology E Decel Time 243 (160-240 msec) E/A Ratio 1.5 Mitral Valve MV E Max Harman. 73.0 (40-130 cm/s) MV A Velocity 50.0 (40-130 cm/s) E/A Ratio 1.47 MV PHT 71.0 ms Left Ventricle The left ventricle is normal size. The left ventricular systolic function is normal. The left ventricular ejection fraction is within the normal range. There is normal left ventricular wall thickness. There is normal LV segmental wall motion. The left ventricular diastolic function is normal. LVEF is 55%. Right Ventricle The right ventricle is normal size. The right ventricular systolic function is normal. Atria The left atrium size is normal. The right atrium size is normal. There is no Doppler evidence of interatrial shunt. Aortic Valve Aortic valve opens well. There is no aortic valvular stenosis. No aortic regurgitation is present. Mitral Valve The mitral valve is normal in structure. No evidence of mitral valve stenosis. There is no mitral valve regurgitation noted. Tricuspid Valve Tricuspid valve is grossly normal in structure and function. Trace tricuspid regurgitation. There is insufficient TR jet to estimate RVSP. Pulmonic Valve The pulmonary valve is normal in structure. Trace pulmonic regurgitation. Great Vessels The aortic root is normal in size. The ascending aorta is normal in size. IVC is normal in size and collapses >50% with inspiration. Pericardium There is no pericardial effusion. Other Information Study Quality: Adequate Conclusion Normal biventricular systolic function. No significant valvular stenosis or regurgitation. Electronically signed by : Yuli Jones MD 01/09/2025 13:57:21
--- NOTE | 2025-01-06 09:50 | ECG_ITS ---
APPROVED REPORT Exam: Resting ECG HR:70 bpm ECG Measurements Heart Rate 70 AXES [place] 172 P 49 QRSd 100 QRS 11 QT 390 T 24 QTc 410 Conclusion SINUS RHYTHM NORMAL ECG UNCONFIRMED REPORT Electronically signed by : Nickolas Vasquez MD 01/07/2025 20:20:19
== END 2025-01-06 23:59 | disposition home or self-care (01) ==
PROVIDERS: PCP Physician Assistant; Visit Provider Specialist
DX: Q79.60 Ehlers-Danlos syndrome, unspecified (principal); G47.33 Obstructive sleep apnea (adult) (pediatric); F17.290 Nicotine dependence, other tobacco product, uncomplicated
CPT/HCPCS: 93005; 93306

== ENCOUNTER → 2025-02-03 10:52 | Outpatient (CLI) | payer OTHER, SELFPAY ==
--- OUTSIDE RECORDS SUMMARY | 2025-02-03 10:54 | XMS_ITS | Data Portability ---
Author Organization [facility] & [facility] ADMIN Address [address] [place] [id number] Care Team Providers Care Manager Developmental Name Role Phone HELEN ESTRADA Primary Care Provider [phone] Assessment No assessment recorded. Plan of Treatment Reminders Order Date Submit Date Provider Last Modified By Organization Details Last Modified Time Details Appointments None recorded . Lab CBC w/ auto diff 024 [facility]/20/20 [email or web address], [address], [address], [place], [address], 4 16:17:31 CMP, serum or plasma 024 06/20/20 24 [email or web address] [address] [facility], [address], [address], [place], [address], 4 16:09:50 Referral None recorded . Procedures None recorded . Surgeries None recorded . Imaging None recorded . Medication Orders None recorded . Patient TargetsNo targets recorded. Patient InstructionsNo instructions recorded. Reason for Referral None Reported. Results Created Date Observation Date Name Description Value Unit Range Abnormal Flag Note LastModifiedBy Organization Detail LastModifiedTime Result Notes None recorded. Procedures Surgical History Date Name Laterality Status Provider Name and Address Organization Details Recorded Time 04/29/20 24 section completed MUNDO DILLON NP [address], [place], [address], [facility] & [place] 06/20/2024 14:26:23 09/28/19 14 Knee Surgery completed MUNDO DILLON NP [address], [place], [address], [place] - [facility] - [place] & [place] 06/20/2024 14:26:03 Tonsillectomy completed Gudelia Tena [place] - [facility] - [place] & [place] 06/20/2024 14:11:28 Ear Tube completed Gudelia [place] - [employer] - [place] & [place] 06/20/2024 14:11:38 Cholecystectomy completed Sly Escamilla [place] - [facility] - [place] & [place] 07/11/2024 10:18:53 Imaging Results None recorded. Procedure Notes None recorded. Medical Equipment None Reported. Allergies No known drug allergies Medications Name Sig Start Date Stop Date Status Note LastModified by Organization Details LastModified Time latanoprost 0.005 % eye drops active Not Available Not Available Not Available Vitamin B-6 25 mg tablet 06/20 completed Not Available Not Available Not Available azithromyci n 250 mg tablet 06/20 completed Not Available Not Available Not Available ibuprofen 800 mg tablet TAKE ONE TABLET BY MOUTH EVERY 8 HOURS NEEDED FOR PAIN --TAKE WITH FOOD-- 06/20 completed Not Available Not Available Not Available promethazin e 12.5 mg tablet 06/20 completed Not Available Not Available Not Available ondansetron HCl 4 mg tablet 07/11 completed Not Available Not Available Not Available famotidine 40 mg tablet 07/11 completed Not Available Not Available Not Available metronidazo le 500 mg tablet 06/20 completed Not Available Not Available Not Available omeprazole 40 mg capsule,del ayed release 06/20 completed Not Available Not Available Not Available pantoprazol e 20 mg tablet,sienna yed release 06/20 completed Not Available Not Available Not Available amoxicillin 875 mg tablet 07/11 completed Not Available Not Available Not Available pantoprazol e 40 mg tablet,sienna yed release 07/11 completed Not Available Not Available Not Available Cipro 500 mg tablet Take 1 tablet every 12 hours by oral route. 07/11 completed Not Available Not Available Not Available gabapentin 300 mg capsule Take 1 capsule 3 times a day by oral route for 7 days. 07/11 completed Not Available Not Available Not Available methylpredn isolone 4 mg tablets in a dose pack 06/20 completed Not Available Not Available Not Available celecoxib 100 mg capsule Take 1 capsule twice a day by oral route for 7 days. 07/11 completed Not Available Not Available Not Available bromphenira mine-pseudo ephedrine-D M 2 mg-30 mg-10 mg/5 mL oral syrup 06/20 completed Not Available Not Available Not Available ondansetron 4 mg disintegrat ing tablet Place 1 tablet twice a day by transling ual route as needed, for nausea. 07/11 completed Not Available Not Available Not Available fluticasone propionate 50 mcg/actuati on nasal spray,suspe nsion 07/11 completed Not Available Not Available Not Available amoxicillin 875 mg-potassiu m clavulanate 125 mg tablet 06/20 completed Not Available Not Available Not Available oxycodone 5 mg tablet TAKE ONE TABLET BY MOUTH EVERY 4 HOURS NEEDED FOR moderate pain MAY CAUSE DROWSINES S 06/20 completed Not Available Not Available Not Available ciprofloxac in 0.3 %-dexametha sone 0.1 % ear drops,suspe nsion 07/11 completed Not Available Not Available Not Available Sleep Aid (doxylamine ) 25 mg tablet 07/11 completed Not Available Not Available Not Available metronidazo le 500mg 07/11 completed Not Available Not Available Not Available 28 mg iron-800 mcg tablet 06/20 completed Not Available Not Available Not Available Vitals Date Recorded Body height Body mass index (BMI) Body weight Body temperature Heart rate Systolic blood pressure Diastolic blood pressure Provider Name and Address Organization Details Last Updated DateTime 4 162.56 cm 44.1 kg/m2 813153. 24 g 99.2 [degF] 82 /min 126 mm[Hg] 69 mm[Hg] Gudelia CARLSON - [facility] - [place] & [place] 4 14:06:04 Date Recorded Body height Body mass index (BMI) Body weight Body temperature Heart rate Systolic blood pressure Diastolic blood pressure Provider Name and Address Organization Details Last Updated DateTime 4 162.56 cm 43 kg/m2 021831. 89 g 99 [degF] 95 /min 143 mm[Hg] 95 mm[Hg] Sly parks [place] - [facility] & [place] 10:19:07 Social History Question Answer Notes LastModified by Organizat ion Details LastModified Time Tobacco Smoking Status Never Smoker Gudelia shi, [place] - [facility] & [place] 06/20/2024 14:11:07 What Is Your Level Of Alcohol Consumption? None [email or web address] Information not available 06/20/2024 Sex: Unknown Functional Status None recorded. Mental Status None recorded. Family History Relationship Description Onset Age of this Age Resolved Age Notes LastModified by Organization Details LastModified Time Father Allergy pt. added direct ly (06/20) [email or web address] Not available 06/20/2024 09:20:10 Father Hypertensive disorder pt. added direct ly (06/20) [email or web address] Not available 06/20/2024 09:20:34 Mother Allergy pt. added direct ly (06/20) [email or web address] Not available 06/20/2024 09:20:10 Mother Disorder of endocrine system pt. added direct ly (06/20) [email or web address] Not available 06/20/2024 09:20:22 Mother Hypertensive disorder pt. added direct ly (06/20) [email or web address] Not available 06/20/2024 09:20:34 Brother Allergy pt. added direct ly (06/20) [email or web address] Not available 06/20/2024 09:20:10 Maternal Grandmother Disorder of endocrine system pt. added direct ly (06/20) [email or web address] Not available 06/20/2024 09:20:22 Maternal Grandmother Hypertensive disorder pt. added direct ly (06/20) [email or web address] Not available 06/20/2024 09:20:34 Medical History Condition Response Kidney Stones Y Anesthesia Complications Y GERD/Reflux Y Gynecological HistoryNo gynecological history recorded. Obstetrics History GPAL:G 0 P 0 0 0 0 Past Encounters Encounter ID Performer Location Encounter Start Date Encounter Closed Date Diagnosis/Indication Diagnosis SNOMED-CT Code Diagnosis ICD10 Code Diagnosis Note [id number] MELI DILLON [employer]CH[employer] [facility] [address] [place], [place] [address] 06/20/2024 13:48:47 06/20/2024 14:40:19 Pre-surgery evaluation 830329935 Z01.818 Cholelithi asis without obstruction 16096165 K80.20 Patient is to have robotic multiport cholecyste ctomy. All risks, complicati ons, alternativ es were explained to the patient agreed upon. These include but not limited to nausea, vomiting, diarrhea, bowel/blad mario/vessel injury, bile duct injury, bile leak and need for additional surgery or open surgery. Patient has been given education an opportunit y to voice all questions and agrees to proceed.Fareed andrew will return to clinic for postoperat charis visit 2 weeks after surgery. [id number] MELI DILLON NP [facility] [address] [facility] [address] [place] [address] 07/11/2024 10:10:42 07/11/2024 11:29:24 Postoperative visit 193002640 Z48.89 Patient is doing well overall since surgery. Patient was encouraged to continue rotating tylenol and ibuprofen around the clock if she continues to experience soreness to her incision sites. Patient will continue on 35lb weight restrictio n for 1 more week. She will follow up PRN. Health Concerns Section Related Observation LastModified by Organization Detai ls LastModified Time None Recorded Concern Status LastModified by Organization Details LastModified Time None Recorded Advance Directives Directive None Recorded Payers Insurance Date Sequence Insurance Name Policy Number Policy Rocha Covered Member ID Rocha Member ID Guarantor Name 07/08/2024 1 [facility] (MEDICAID HMO) Mary Menjivar [id number] Mary Menjivar Notes Date Note Type Note Provider Name and Address Organization Details Recorded Time 06/20/2024 text/html patient is 23-year-old female, who presents today for f/u from ER visit on 06/19/2024 at [facility] with interest in possible cholecystectomy. patient has past medical history of GERD, EDS, and glaucoma. past surgical history includes on April 29, 2024. Patient reports during anesthesia she sometimes awakens and requires additional anesthesia doses. Patient is reporting right upper quadrant pain that radiates to her back. This became severe over the weekend, and she presented to the ER. patient did vomit once. She reports pain And nausea lasted for 7 hours. she states symptoms have been intermittent for [address] scan performed on 06/19/2024 showed acute cholelithiasis without evidence of cholecystitis. ER note read Labs remarkable for WBC of 12.2, t-bili 1.5, AST 146, ALT 123. Casediscussed with Dr. Bui, who recommended inpatient admission with IVabx, but if patient refused admission, to discharge with PO abx andshe will be seen in Dr. Bui's clinic tomorrow, 06/20. Plan of carediscussed with patient, she stated she has two little kids at homeand wanted to be discharged, but was in agreement to PO abx andfollowing up in clinic tomorrow. Patient tolerated PO intake, willdischarge to home with planned follow up with Dr. Bui . Patient was subsequently discharged from ED and presented today to be scheduled for surgery. MUNDO DLILON NP [address], [place], [address], [place] - [facility] & [place] 06/21/2024 14:09:35 07/11/2024 text/html Patient is 24yo female who presents for two week postop visit s/p Robot assisted laparoscopic cholecystectomy on 06/27/2024. Patient has done well since surgery. She does report some loose BMs since having surgery. She also states that a few days ago when arising from the couch, she noticed increased abdominal pain and has experienced this pain intermittently since then. She does not report it is severe. MUNDO DILLON NP [address], [place], [address], [place] - [facility] & [place] 07/11/2024 10:38:39 OBGyn Episode No OBEpisode recorded.
--- OUTSIDE RECORDS SUMMARY | 2025-02-03 10:54 | XMS_ITS | Continuity of Care Document ---
Author Organization [facility] Phone Care Team Providers Care Certified Retinal Angiographer Name Role Phone HELEN ESTRADA Primary Care HELEN ESTRADA Admitting HELEN ESTRADA Unavailable HELEN ESTRADA Primary Attending ALLERGIES AND ADVERSE REACTIONS ALLERGIES AND ADVERSE REACTIONS Code System Allergy Substance Adverse Reaction Date Reaction (Severity) Comment Status Reported By Updated By No Known Allergies [email or web address] on June 27, 2024 11:34:12 AM [facility] MEDICATIONS HOME MEDICATIONS Status RXNORM NDC Medication [...] Description Effective Dates Offered Cessation Comment UpdatedBy [id number] Historical Tobacco smoking status Never Smoked [id number] on June 23, 2024 3:02:00 PM [facility] SOCIAL HISTORY - Gender Sex: Female SOCIAL [...] available. ENCOUNTERS ENCOUNTER INFORMATION Reason for Visit PELVIC FLOOR DYS Admission January 16, 2025 1:03:[address] [address] Discharge January 26, 2025 3:59:00 AM UTC DISCH ARGED TO HOME OR SELF CARE ENCOUNTER DIAGNOSES Notes information is not celina ilable. Code System Diagnosis Onset Date Diagnosis information is not available. ABSTRACT DIAGNOSES Code System Diagnosis Updated By R32 ICD10 UNSPECIFIED URINARY INCONTIN ENCE [id number] on January 30, 2025 3:25:21 PM UTC R32 ICD10 UNSPECIFIED URINARY INCONTIN ENCE [id number] on January 30, 2025 3:25:21 PM UTC CARE TEAM Care Certified Retinal Angiographer Role HELEN STONE Primary Care HELEN STONE Admitting HELEN STONE Referring HELEN STONE Primary Attending CARE TEAM CARE automatic dry starch operator Role on Team Status Start Date End Date Update d By STONE HELEN D PCP normal December 27, 2024 5:20:45 PM UTC January 26, 2025 3:59:00 AM UTC [id number] on December 27, 2024 5:20:45 PM UTC STONE HELEN D Referring normal December 27, 2024 5:20:45 PM UTC January 26, 2025 3:59:00 AM UTC [id number] on December 27, 2024 5:20:45 PM UTC STONE HELEN D Attending normal December 27, 2024 5:20:45 PM UTC January 26, 2025 3:59:00 AM UTC [id number] on December 27, 2024 5:20:45 PM UTC STONE HELEN D Admitting normal December 27, 2024 5:20:44 PM UTC January 26, 2025 3:59:00 AM UTC [id number] on December 27, 2024 5:20:45 PM UTC
== END ==
LOC: SL 10:53
PROVIDERS: PCP Specialist; Visit Provider Specialist
DX: G47.30 Sleep apnea, unspecified (principal); R06.83 Snoring
CPT/HCPCS: G0399